=== PATIENT | female | born 1960 | race Caucasian/White ===

== ENCOUNTER 2020-05-31 17:50 | Emergency (ER) | payer BC, SELFPAY ==
[2020-05-31 17:55] VITALS: BP 189/109; PULSE 82; RESP 18; TEMP 36.6; O2SAT 98; BMI 26.5
[2020-05-31 18:05] VITALS: BP 189/109; PULSE 82; RESP 18; TEMP 36.6; O2SAT 98; BMI 26.6
--- NOTE | 2020-05-31 18:06 | XR_ITS ---
PROCEDURE: XR WRIST RT MIN 3V CLINICAL INDICATION: fall Pain COMPARISON: No exams were available for comparison FINDINGS: There is a comminuted impacted fracture involving the distal radius. There is impaction and mild foreshortening of the fracture fragments with 5 mm anterior displacement of the anterior fracture fragment. Intra-articular extension is noted. Nondisplaced distal ulnar fracture is also present. There are severe osteoarthritic changes of the 1st metacarpal-carpal joint Other findings:None. IMPRESSION: Impacted mildly displaced comminuted distal radial fracture with associated nondisplaced ulnar fracture Dictated by: Dariusz Beckford MD 05/31/2020 22:01 Dariusz Beckford MD in [place] 05/31/2020 22:01
--- NOTE | 2020-05-31 18:43 | HMH.EDUTC ---
[facility] [place] Disposition Clinical Impression: Right wrist fracture Qualifiers: Encounter type: initial encounter Fracture type: closed Qualified Code(s): S62.101A - Fracture of unspecified carpal bone, right wrist, initial encounter for closed fracture Right radial fracture Qualifiers: Encounter type: initial encounter Radius location: distal physis (incl. Salter-Kidd) Fracture alignment: nondisplaced Qualified Code(s): S59.201A - Unspecified physeal fracture of lower end of radius, right arm, initial encounter for closed fracture Right distal ulnar fracture Qualifiers: Encounter type: initial encounter Fracture type: closed Fracture morphology: unspecified fracture morphology Qualified Code(s): S52.601A - Unspecified fracture of lower end of right ulna, initial encounter for closed fracture Disposition: Home, Self-Care Condition on Discharge: Good Instructions: Wrist Fracture, DI for Wrist Fracture, How to Take Care of Your Splint Additional Instructions: Follow up with your orthopedist. We gave you a disk with your x-ray on it. Please call his office in the morning and get in to be seen. Call here if you have any difficulty. Take ibuprofen for pain. I sent in a prescription to your pharmacy. Wear the splint and arm sling. Make sure it doesn't get too tight from the swelling. GO TO THE ER FOR ANY WORSENING SYMPTOMS OR CONCERNS Prescriptions: Ibuprofen [Ibuprofen 600mg Tablet] 600 mg PO Q6HP PRN #30 tab PRN Reason: Mild Pain Transmission Status: Received by [facility] #[id number] Referrals: Mario Evans MD [Primary Care Provider] - Forms: Work/School Release Time of Disposition: 18:52 Medical Decision Making - Medical Records Medical records reviewed: No: I reviewed the patient's medical records. - Guillermo Inquiry Pt receiving controlled substance: No Vital Signs: 05/31/20 17:55 05/31/20 18:05 05/31/20 18:57 Temperature 97.9 F 97.9 F 97.9 F Temperature Source Oral Oral Oral Pulse Rate 82 Pulse Rate [Right Radial] 82 82 Respiratory Rate 18 18 18 Blood Pressure 180/98 H Blood Pressure [Right Arm] 189/109 H 189/109 H Blood Pressure Mean [Right Arm] 135 135 Blood Pressure Source Automatic Cuff Blood Pressure Source [Right Arm] Automatic Cuff Automatic Cuff Blood Pressure Position Sitting Blood Pressure Position [Right Arm] Sitting Sitting 02 Sat by Pulse Oximetry 98 98 Oxygen Delivery Method Room Air Room Air Room Air - Radiology Data #1 Image(s): Wrist Image Reviewed: Yes I reviewed the patient's radiology image, Yes I have reviewed radiologist's interpretation Preliminary Findings: Abnormal PROCEDURE: XR WRIST RT MIN 3V CLINICAL INDICATION: fall Pain COMPARISON: No exams were available for comparison FINDINGS: There is a comminuted impacted fracture involving the distal radius. There is impaction and mild foreshortening of the fracture fragments with 5 mm anterior displacement of the anterior fracture fragment. Intra-articular extension is noted. Nondisplaced distal ulnar fracture is also present. There are severe osteoarthritic changes of the 1st metacarpal-carpal joint Other findings:None. IMPRESSION: Impacted mildly displaced comminuted distal radial fracture with associated nondisplaced ulnar fracture Dictated by: Dariusz Beckford MD 05/31/2020 22:01 Dariusz Beckford MD in [place] 05/31/2020 22:01 Medical Decision Narrative: She was adamant that she works at [facility] [employer] [place] so she wants to be seen by the orthopedist there. A disk containing the x-ray image was given to her. A sugar tong splint was applied. She was instucted to call her ortho first thing in the morning and to take the disk to her ortho's office so he can view the x-ray and treat her from there. If she has any trouble getting in there she is to call me and I will get her in with our ortho tanner. [facility] [place] HPI - General Stated complaint: AO 05/31/20 Fell, injured
[2020-05-31 18:57] VITALS: BP 180/98; PULSE 82; RESP 18; TEMP 36.6; O2SAT 98
== END 2020-05-31 18:59 | disposition home or self-care (01) ==
PROVIDERS: Emergency Provider Nurse Practitioner Family; PCP Family Medicine
DX: S52.501A Unspecified fracture of the lower end of right radius, initial encounter for closed fracture (principal); S52.601A Unspecified fracture of lower end of right ulna, initial encounter for closed fracture; W01.0XXA Fall on same level from slipping, tripping and stumbling without subsequent striking against object, initial encounter; Y92.015 Private garage of single-family (private) house as the place of occurrence of the external cause
CPT/HCPCS: 29125; 73110; 99203

== ENCOUNTER 2024-10-16 08:51 | Outpatient (CLI) | payer BC, SELFPAY ==
[2024-10-16 09:24] LABS: Basophils # 0.1 K/mm3 (0-0.2); Basophils % 0.9 % (0.1-2.0); Eosinophils # 0.7 K/mm3 (0.0-0.4); Eosinophils % 9.3 % (0.1-12.0); Hematocrit 41.6 % (37.0-47.0); Hemoglobin 14.3 g/dL (12.2-16.2); Lymphocytes # 1.8 K/mm3 (0.7-4.5); Lymphocytes % 23.7 % (10-50); Mean Corpuscular HGB Conc 34.4 g/dL (31.8-35.4); Mean Corpuscular Hemoglobin 33.7 pg (27.0-31.2); Mean Corpuscular Volume 98.1 fl (81-99); Mean Platelet Volume 10.7 fl (7.4-10.4); Monocytes # 0.8 K/mm3 (0.1-1.0); Monocytes % 10.3 % (1.7-9.3); Neutrophils # 4.3 K/mm3 (1.8-7.8); Neutrophils % 55.7 % (37.0-80.0); Platelet Count 254 K/mm3 (142-424); Red Blood Count 4.24 M/mm3 (4.20-5.40); Red Cell Distribution Width 13.2 % (11.5-17.5); White Blood Count 7.7 K/mm3 (4.8-10.8)
[2024-10-16 10:23] LABS: Albumin Level 4.7 g/dl (3.5-5.0); Chloride 109 mmol/L (98-107)
[2024-10-16 10:24] LABS: Potassium 4.5 mmoL/L (3.5-5.1); Sodium 141 mmol/L (136-145)
[2024-10-16 10:26] LABS: Alanine Aminotransferase 23 U/L (12-78); Albumin/Globulin Ratio 2.4 (1.1-1.8); Alkaline Phosphatase 129 U/L (38-126); Anion Gap 11.5 mEq/L (5-15); Aspartate Amino Transferase 31 U/L (14-36); Bilirubin,Total 0.8 mg/dl (0.2-1.3); Blood Urea Nitrogen 15 mg/dl (7-17); Carbon Dioxide 25 mmol/L (22.0-30.0); Estimated Glomerular Filt Rate 85 ml/min (>60); GFR (African American) 102 ML/MIN (>60); Total Protein,Serum 6.7 g/dl (6.3-8.2)
[2024-10-16 10:27] LABS: Chol/HDL Ratio 2.9 (1-3.5); Cholesterol 204 mg/dl (140-200); Glucose 112 mg/dl (74-100); HDL Cholesterol 70 mg/dl (40-60); Triglycerides 98 mg/dl (30-150); VLDL Cholesterol 20 mg/dL (0-40)
[2024-10-16 10:39] LABS: Direct LDL Cholesterol 114.55 mg/dL (100-129)
[2024-10-16 11:01] LABS: Thyroid Stimulating Hormone 1.27 uIU/mL (0.465-4.68)
== END 2024-10-16 23:59 | disposition home or self-care (01) ==
LOC: LAB 08:52
PROVIDERS: PCP Physician Assistant; Visit Provider Physician Assistant
DX: E78.2 Mixed hyperlipidemia (principal); I10 Essential (primary) hypertension
CPT/HCPCS: 36415; 80053; 80061; 84443; 85025

== ENCOUNTER 2025-07-02 09:38 | Outpatient (CLI) | payer BC, SELFPAY ==
--- OUTSIDE RECORDS SUMMARY | 2024-02-18 07:15 | XMS_ITS ---
Author Organization C[facility] Address [facility] [facility] [address] [place] [phone] Care Team Providers Care Experience Design Director Name Role Phone Trena Evans Primary Care Provider [phone] Vee Gillespie Unavailable [phone] Allergies No Known Allergies Results Component Value Reference Range Notes Glycohemoglobin A1c (in hous e) Reviewed date:02/25/2024 09:04:05 AM Interpretation:5.0% Performing Lab: Notes/Report: 5.0% glycohemoglobin 5.0% 5 - 6.5 % REASON FOR VISIT 1 week Medications Medication SIG (Take, Route, Frequency, Duration) Notes Start Date End Date Status Lisinopril 40 MG 1 tablet Orally Once a day; Duration: 30 day(s) 02/18/2024 Active Lipitor 40 MG 1 tablet Orally Once a day; Duration: 90 days 02/18/2024 Active Lisinopril 20 MG 1 tablet Orally Once a day 02/11/2024 Active Venlafaxine HCl ER 37.5 MG 1 tablet with food Orally Once a day; Duration: 30 day(s) 02/11/2024 Active Social History Tobacco Use: Social History Observation Description Date Smoking Status WARNING: Information temporarily unavailable CURRENT TOBACCO USE: Question Answer Notes Are you a: 1/2 pack per day Vital Signs Blood pressure systolic 160 mm Hg 02/18/20 24 Blood pressure diastolic 100 mm Hg 024 Heart Rate 94 /min 02/18/2024 Height 58 in 02/18/2024 Weight 154.4 lbs 02/18/2024 BMI 32.27 kg/m2 02/18/2024 Encounters Encounter Location Date Provider Diagnosis [facility] [address] [place] [phone] 02/18/2024 Vee Jose Miguel Essential hypertensi on I10 ; Mixed hyperlipidemia E78.2 and Impaired fasting glucose R73.01 Assessments Encounter Date Diagnosis (ICD Code) Assessment Notes Treatment Notes Treatment Clinical Notes Section Notes 02/18/2024 Essential hypertension (ICD-10 - I10) Will increase lisinopril and continue to monitor BP. Will f/u in 1 month. 02/18/2024 Mixed hyperlipidemia (ICD-10 - E78.2) Lipids were elevated. Will start back on lipitor and recheck in 3 months. 02/18/2024 Impaired fasting glucose (ICD-10 - R73.01) Plan Of Treatment Medication Medication Name Sig Start Date Stop Date Notes Lisinopril 40 MG 1 tablet Orally Once a day; Duration: 30 day(s) 02/18/2024 Lipitor 40 MG 1 tablet Orally Once a day; Duration: 90 days 02/18/2024 Treatment Notes Assessment Notes Essential hypertension Will increase lis inopril and continue to monitor BP. Will f/u in 1 month. Mixed hyperlipidemia Lipids were elevate d. Will start back on lipitor and recheck in 3 months. Next Appt Details Follow Up: 1 month, Reason: Progress Notes * REE EUSEBIODOB: 2 (64 yo F)Acc No.[id number]:02/18/2024 Progress Notes Patient: EUSEBIO PATTERSON Provider: DANNY Weller :1960 A ge:63 Y S ex:Female Date:02/18/2024 Address:[address] [place] [address] [place], [id number] Pcp:Trena Evans Subjective: * Chief Complaints: * 1 . 1 week. * HPI: C ardiology: The patient is here for a 1 week follow up on Hypertension. Pt states she has been checking her BP and has a log but forgot to bring it in today. Pt states her BP has been up and down. Mostly up. Pt states refills are not needed. Denies : Chest Pain. D enies : Short of Breath. D enies : Dizziness. D enies : Palpitations. D enies : Headaches. * ROS: D ERMATOLOGY: no R kathleen. n o H constance. G ASTROENTEROLOGY: no N ausea. n o V omiting. n o D iarrhea.? U ROLOGY: no D ifficulty urinating. n o B lood in urine. * Medical History: H ypertension, Hyperlipidemia. * Surgical History: t onsillectomy 1968, 1991, 1994. * Family History: F ather: , alzheimer. M other: alive. 3 brother(s) , 1 sister(s) - healthy. 2 son(s) . . one Son had a stroke at age 28. * Social History: C URRENT TOBACCO USE: Yes A re you a: 1/2 pack per day. C affeine: yes, frequency:2-3 sodas a day. Exercise: no. Home smoke detector use: yes. Marital Status: . Alcohol: yes, occasional wine. 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 Past smoking status: yes, PPD: , years: ,determination:, 1 ppd, 40 + years;. Recreational drug use: no. Alcohol: Yes, Type: , Frequency: ,Years: , Determination:beer or wine, 2-3 times a week. Sexually active: yes. Travel ouside [place]: no. * Medications: T aking Lisinopril 20 MG Tablet 1 tablet Orally Once a day , Taking Venlafaxine HCl ER 37.5 MG Tablet Extended Release 24 Hour 1 tablet with food Orally Once a day , Medication List reviewed and reconciled with the patient * Allergies: N .K.D.A. Objective: * Vitals: W t:154.4, Temp:98.1, BP:160/100, HR:94, Nurse:ELISA, Ht: 58, Repeat BP:138/98, BMI:32.27. * Examination: G eneral Examination: General Appearance: N AD. C hest: n ormal shape and expansion. H eart: R SR. L ungs: c lear to auscultation. E xtremities: trace leg edema. Assessment: * Assessment: 1. E ssential hypertension - I10 (Primary) 2 . M ixed hyperlipidemia - E78.2 3 . I mpaired fasting glucose - R73.01 Plan: * Treatment: 2. M ixed hyperlipidemia Start Lipitor Tablet, 40 MG, 1 tablet, Orally, Once a day, 90 days, 90 Tablet, Refills 0. ? Notes: Lipids were elevated. Will start back on lipitor and recheck in 3 months. 3. I mpaired fasting glucose L AB: Glycohemoglobin A1c (in house) (Collection Date & Time - 02/18/2024) 5 .0% Value Reference Range g lycohemoglobin 5.0% 5 - 6.5 % * Sobeida Sena 02/18/2024 12:0 1:25 PM > results reviewed w/ pt in Vee Soto 02/25/2024 8:44:43 AM > Please let patient know this was normalGobleSobeida 02/25/2024 8:58:06 AM > left message for return callGobleSobeida 02/25/2024 9:02:58 AM > pt informed again * Procedure Codes: 3 6416 CAPILLARY BLOOD DRAW, 02368 GLYCATED HEMOGLOBIN TEST, Modifiers: QW * Follow Up: 1 month * Images: Billing Information: * Visit Code: 16203 Office Visit, Est Pt., Level 3. * Procedure Codes: 39829 CAPILLARY BLOOD DRAW. 47186 GLYCATED HEMOGLOBIN TEST. Modifiers: QW * Electronic signature of DANNY Tafoya on 07/02/2025 at 09:41 AM EDT Sign off status: Pending * Provider: DANNY Weller Date: 0 02/18/2024 Generated for Fede ng/Fagabrielag/eTransmitting on: 1 09/01/2024 09:41 AM EDT History and Physical Notes * HPI (History of Present Illness) Category Sub-Category Detail Notes Category Not es Cardiology Short of Breath Chest Pain Palpitations Dizziness Headaches Examination Category Sub-Category Detail Notes Category Not es General Examination Heart: RSR Lungs: clear to auscultatio n Extremities: trace leg edema General Appearance: NAD Chest: normal shape and exp ansion
--- OUTSIDE RECORDS SUMMARY | 2024-03-19 11:30 | XMS_ITS ---
Author Organization [facility] Address [address] [facility] [address] [place] [phone] Care Team Providers Care Luggage Repairer Name Role Phone Trena Evans Primary Care Provider [phone] Vee Gillespie Unavailable [phone] Allergies No Known Allergies REASON FOR VISIT 1 month f/u Medications Medication SIG (Take, Route, Frequency, Duration) Notes Start Date End Date Status Isosorbide Mononitrate ER 60 MG 1 tablet in the morning Orally Once a day; Duration: 30 day(s) Active Metoprolol Tartrate 25 MG 1 tablet with food Orally Twice a day; Duration: 30 day(s) Active Lisinopril 40 MG 1 tablet Orally Once a day; Duration: 30 day(s) 02/18/2024 Active Lipitor 40 MG 1 tablet Orally Once a day; Duration: 90 days 02/18/2024 Active Venlafaxine HCl ER 37.5 MG 1 tablet with food Orally Once a day; Duration: 30 day(s) 02/11/2024 Active Social History Tobacco Use: Social History Observation Description Date Smoking Status WARNING: Information temporarily unavailable CURRENT TOBACCO USE: Question Answer Notes Are you a: 1/2 pack per day Vital Signs Blood pressure systolic 148 mm Hg 03/19/20 24 Blood pressure diastolic 84 mm Hg 024 Heart Rate 75 /min 03/19/2024 Height 58 in 03/19/2024 Weight 156.6 lbs 03/19/2024 BMI 32.73 kg/m2 03/19/2024 Encounters Encounter Location Date Provider Diagnosis [facility] [address] [facility] [address] [place] [phone] 03/19/2024 Vee Gillespie Mixed hyperlipidemia E78.2 and Essential hypertension I10 Assessments Encounter Date Diagnosis (ICD Code) Assessment Notes Treatment Notes Treatment Clinical Notes Section Notes 03/19/2024 Mixed hyperlipidemia (ICD-10 - E78.2) Will need to recheck lipids in 1 month fasting. 03/19/2024 Essential hypertension (ICD-10 - I10) Cardiology is now adjusting medication. Awaiting stress test and echo. Plan Of Treatment Treatment Notes Assessment Notes Mixed hyperlipidemia Will need to rechec k lipids in 1 month fasting. Essential hypertension Cardiology is now adjusting medication. Awaiting stress test and echo. Next Appt Details Follow Up: 1 month fasting, Reason: Progress Notes * CARMEN KEENANCHRISDOB: 2 (64 yo F)Acc No.[id number]:03/19/2024 Patient: EUSEBIO PATTERSON Provider: DANNY Weller :1960 A ge:63 Y S ex:Female Date:03/19/2024 Address:[address] [place] [id number] Pcp:Trena Evans Subjective: * Chief Complaints: * 1 . 1 month f/u. * HPI: C ardiology: Blood Pressure Elevated P t presents today for a 1 month follow up on hypertension. Pt sts that she had to go to the ER due to her BP being elevated and then saw cardiology. She was g ivgladys labetolol in the ER and was sent with rx of metoprolol 25mg bid.? Her BP was s till not going down so 3 days later they gave her isosorbide 60 once a day. She had a stress test and has a f/u with an echo this coming Friday. . * ROS: D ERMATOLOGY: no R kathleen. [...] Status: . Alcohol: yes, occasional wine. 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 Past smoking status: yes, PPD: , years: ,determination:, 1 ppd, 40 + years;. Recreational drug use: no. Alcohol: Yes, Type: , Frequency: ,Years: , Determination:beer or wine, 2-3 times a week. Sexually active: yes. Travel ouside [place]: no. * Medications: T aking Isosorbide Mononitrate ER 60 MG Tablet Extended Release 24 Hour 1 tablet in the morning Orally Once a day , Taking Metoprolol Tartrate 25 MG Tablet 1 tablet with food Orally Twice a day , Taking Lisinopril 40 MG Tablet 1 tablet Orally Once a day , Taking Lipitor 40 MG Tablet 1 tablet Orally Once a day , Taking Venlafaxine HCl ER 37.5 MG Tablet Extended Release 24 Hour 1 tablet with food Orally Once a day , Medication List reviewed and reconciled with the patient * Allergies: N .K.D.A. Objective: * Vitals: W t:156.6, Temp:98.2, BP:148/84, HR:75, O2 Sat:98% on RA, Nurse:SIDNEY, Ht: 58, Repeat BP:150/80, BMI:32.73. * Examination: G eneral Examination: General Appearance: N AD. C hest: n ormal shape and expansion. H eart: R SR. L ungs: c lear to auscultation. E xtremities: no leg edema. Assessment: * Assessment: 1. M ixed hyperlipidemia - E78.2 (Primary) 2 . E ssential hypertension - I10 Plan: * Treatment: 2. E ssential hypertension Notes: Cardiology is now adjusting medication. Awaiting stress test and echo. * Procedure Codes: 9 4760 PULSE OX * Follow Up: 1 month fasting * Images: Billing Information: * Visit Code: 54382 Office Visit, Est Pt., Level 3. * Procedure Codes: 89301 PULSE OX. * Electronic signature of DANNY Tafoya on 07/02/2025 at 09:42 AM EDT Sign off status: Pending * Provider: DANNY Weller Date: 0 03/19/2024 Generated for Fede prakash/Paige/Candy on: 09/01/2024 09:42 AM EDT History and Physical Notes * HPI (History of Present Illness) Category Sub-Category Detail Notes Category Not es Cardiology Blood Pressure Elevated Pt prese nts today for a 1 month follow up on hypertension. Pt sts that she had to go to the ER due to her BP being elevated and then saw cardiology. She was given labetolol in the ER and was sent with rx of metoprolol 25mg bid. Her BP was still not going down so 3 days later they gave her isosorbide 60 once a day. She had a stress test and has a f/u with an echo this coming Friday. Examination Category Sub-Category Detail Notes Category Not es General Examination Heart: RSR Lungs: clear to auscultatio n Extremities: no leg edema General Appearance: NAD Chest: normal shape and exp ansion
--- OUTSIDE RECORDS SUMMARY | 2024-04-16 12:00 | XMS_ITS ---
Author Organization [facility] Address [facility] [facility] [address] [place] [phone] Care Team Providers Care Paperboard Boxes Estimator Name Role Phone Trena Evans Primary Care Provider [phone] Vee Gillespie Unavailable [phone] Allergies No Known Allergies REASON FOR VISIT 1 month f/u Medications Medication SIG (Take, Route, Frequency, Duration) Notes Start Date End Date Status Venlafaxine HCl ER 75 MG 1 capsule with food Orally Once a day; Duration: 90 days 04/16/2024 Active Metoprolol Tartrate 25 MG 2 tab in the a m and 1 in the pm Orally Twice a day Active Lisinopril 40 MG 1 tablet Orally Once a day; Duration: 90 days Active Lipitor 40 MG 1 tablet Orally Once a day; Duration: 90 days 02/18/2024 Active Isosorbide Mononitrate ER 60 MG 1 tablet in the morning Orally Once a day; Duration: 30 day(s) Active Social History Tobacco Use: Social History Observation Description Date Smoking Status WARNING: Information temporarily unavailable CURRENT TOBACCO USE: Question Answer Notes Are you a: 1/2 pack per day Problems Problem Type SNOMED Code ICD Code Onset Dates Problem Status W/U Status Risk Notes Problem Hypertrophic obstructive cardiomyopathy (13065585) Hypertrophic obstructive cardiomyopathy (I42.1) Active confirmed Vital Signs Blood pressure systolic 160 mm Hg 04/16/20 24 Blood pressure diastolic 108 mm Hg 024 Heart Rate 80 /min 04/16/2024 Height 58 in 04/16/2024 Weight 156.2 lbs 04/16/2024 BMI 32.64 kg/m2 04/16/2024 Encounters Encounter Location Date Provider Diagnosis [facility] [address] [place] [phone] 04/16/2024 Vee Gillespie Hypertrophic obstruc tive cardiomyopathy I42.1 ; Mixed hyperlipidemia E78.2 ; Essential hypertension I10 and Depression with anxiety F41.8 Assessments Encounter Date Diagnosis (ICD Code) Assessment Notes Treatment Notes Treatment Clinical Notes Section Notes 04/16/2024 Hypertrophic obstructive cardiomyopathy (ICD-10 - I42.1) Echo revealed hypertrophic obstructive cardiomyopathy. She is being followed by cardiology. 04/16/2024 Mixed hyperlipidemia (ICD-10 - E78.2) She is not fasting today. Will stop in tomorrow for a CMP and lipid. 04/16/2024 Essential hypertension (ICD-10 - I10) She just got her bottle of metoprolol refilled. Will increase to 2 tab in the am and 1 in the pm and call cardiology next week. 04/16/2024 Depression with anxiety (ICD-10 - F41.8) Plan Of Treatment Medication Medication Name Sig Start Date Stop Date Notes Venlafaxine HCl ER 75 MG 1 capsule with food Orally Once a day; Duration: 90 days 04/16/2024 Venlafaxine HCl ER 37.5 MG 1 tablet with food Orally Once a day 02/11/2024 Metoprolol Tartrate 25 MG 2 tab in the a m and 1 in the pm Orally Twice a day Lisinopril 40 MG 1 tablet Orally Once a day; Duration: 90 days Treatment Notes Assessment Notes Hypertrophic obstructive cardiomyopathy Echo revealed hypertrophic obstructive cardiomyopathy. She is being followed by cardiology. Mixed hyperlipidemia She is not fasting today. Will stop in tomorrow for a CMP and lipid. Essential hypertension She just got her bottle of metoprolol refilled. Will increase to 2 tab in the am and 1 in the pm and call cardiology next week. Next Appt Details Follow Up: via phone to repo rt test results, Reason: Progress Notes * EUSEBIO KEENANDOB: 2 (64 yo F)Acc No.[id number]:04/16/2024 Progress Notes Patient: CARMEN PATTERSONECCA Provider: DANNY Weller :1960 A ge:63 Y S ex:Female Date:04/16/2024 Address:[address] [place] [id number] Pcp:Trena Evans Subjective: * Chief Complaints: * 1 . 1 month f/u. * HPI: C ardiology: Blood Pressure Elevated P t presents today for a 1 month follow up on hypertension. Pt sts that she is not fasting today. Pt has no new concerns or complaints at this time. * ROS: D ERMATOLOGY: no R kathleen. [...] Alcohol: yes, occasional wine. 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 Past smoking status: yes, PPD: , years: ,determination:, 1 ppd, 40 + years;. Recreational drug use: no. Alcohol: Yes, Type: , Frequency: ,Years: , Determination:beer or wine, 2-3 times a week. Sexually active: yes. Travel [place]uside [place]: no. * Medications: T aking Isosorbide Mononitrate ER 60 MG Tablet Extended Release 24 Hour 1 tablet in the morning Orally Once a day , Taking Lipitor 40 MG Tablet 1 tablet Orally Once a day , Taking Venlafaxine HCl ER 37.5 MG Tablet Extended Release 24 Hour 1 tablet with food Orally Once a day , Taking Metoprolol Tartrate 25 MG Tablet 1 tablet with food Orally Twice a day , Taking Lisinopril 40 MG Tablet 1 tablet Orally Once a day , Medication List reviewed and reconciled with the patient * Allergies: N .K.D.A. Objective: * Vitals: W t:156.2, Temp:98.3, BP:160/108, HR:80, O2 Sat:98% on RA, Nurse:SIDNEY, Ht: 58, Repeat BP:140/90, BMI:32.64. * Examination: G eneral Examination: General Appearance: N AD. H EENT: u nremarkable.?Oral cavity: n o lesions, mucosa moist and WNL, no erythema. N sabrina: s upple, no lymphadenopathy. C hest: n ormal shape and expansion. H eart: R SR. L ungs: c lear to auscultation. A bdomen: bowel sounds present, soft and nontender. N eurologic Exam: I ntact, gait normal. S kin: n ormal, no rash. P eripheral pulses: n ormal (2+) bilaterally. E xtremities: n o leg edema. Assessment: * Assessment: 1. H ypertrophic obstructive cardiomyopathy - I42.1 (Primary) 2 . M ixed hyperlipidemia - E78.2 3 . E ssential hypertension - I10 4 . D epression with anxiety - F41.8 Plan: * Treatment: 2. M ixed hyperlipidemia Notes: She is not fasting today. Will stop in tomorrow for a CMP and lipid. 3. E ssential hypertension Refill Lisinopril Tablet, 40 MG, 1 tablet, Orally, Once a day, 90 days, 90 Tablet, Refills 3; I ncrease Metoprolol Tartrate Tablet, 25 MG, 2 tab in the am and 1 in the pm, Orally, Twice a day.? Notes: She just got her bottle of metoprolol refilled. Will increase to 2 tab in the am and 1 in the pm and call cardiology next week. 4. D epression with anxiety Stop Venlafaxine HCl ER Tablet Extended Release 24 Hour, 37.5 MG, 1 tablet with food, Orally, Once a day; S tart Venlafaxine HCl ER Capsule Extended Release 24 Hour, 75 MG, 1 capsule with food, Orally, Once a day, 90 days, 90 Capsule, Refills 3. * Procedure Codes: 9 4760 PULSE OX * Follow Up: v ia phone to report test results * Images: Billing Information: * Visit Code: 23108 Office Visit, Est Pt., Level 4. * Procedure Codes: 43001 PULSE OX. * Electronic signature of DANNY Tafoya on 07/02/2025 at 09:42 AM EDT Sign off status: Pending * Provider: DANNY Weller Date: 0 04/16/2024 Generated for Fede prakash/Paige/Candy on: 1 09/01/2024 09:42 AM EDT History and Physical Notes * HPI (History of Present Illness) Category Sub-Category Detail Notes Category Not es Cardiology Blood Pressure Elevated Pt prese nts today for a 1 month follow up on hypertension. Pt sts that she is not fasting today. Pt has no new concerns or complaints at this time Examination Category Sub-Category Detail Notes Category Not es General Examination HEENT: unremarkable Heart: RSR Lungs: clear to auscultatio n Abdomen: bowel sounds present , soft and nontender Extremities: no leg edema General Appearance: NAD Skin: normal, no rash Neurologic Exam: Intact, gait normal Neck: supple, no lymphaden opathy Oral cavity: no lesions, mucosa m oist and WNL, no erythema Peripheral pulses: normal (2+) bilatera lly Chest: normal shape and exp ansion
--- OUTSIDE RECORDS SUMMARY | 2024-04-17 05:30 | XMS_ITS ---
Author Organization [facility] Address [address] [facility] [address] [place] [id number] Care Team Providers Care Advertising Copywriter Name Role Phone Trena Evans Primary Care Provider [phone] BernardoVee nguyễn Unavailable [phone] Results Component Value Reference Range Notes P-Comprehensive Metabolic Pa gustavo (CMP) Reviewed date:04/21/2024 01:06:10 PM Interpretation:co2- 21, alk phos 139 Performing Lab: Notes/Report: Test performed by [facility] [address] [place], [place] [address] , [address], [place] [address] Tc Lezama MD, Street Cleaning Equipment Operator CLIA: [id number] Sodium 142 135-145 mmol/L Potassium 4.0 3.5-5.3 mmol/L Chloride 108 97-108 mmol/L CO2 21 22-32 mmol/L Glucose 87 65-99 mg/dL BUN 14 8-23 mg/dL Creatinine 0.68 0.50-1.00 mg/dL Calcium 8.7 8.6-10.4 mg/dL eGFR by Creatinine 98 >59 mL/min/1.73m2 Protein 6.6 6.0-8.3 g/dL Albumin 4.4 3.5-5.3 g/dL Alkaline Phosphatase 139 35-121 IU/L ALT (SGPT) 19 <5-47 IU/L AST (SGOT) 26 <5-40 IU/L Bilirubin, Total 0.3 <0.2-1.2 mg/dL A/G Ratio 2.0 1.1-2.5 P-Lipid Panel Reviewed date:04/21/2024 01:05:58 PM Interpretation:Normal Performing Lab: Notes/Report: Test performed by [facility] [address] , [address], [place] [address] Tc Lezama MD, Street Cleaning Equipment Operator CLIA: [id number] Cholesterol 176 <200 mg/dL Triglycerides 108 <150 mg/dL HDL Cholesterol 58 >39 mg/dL Cholesterol / HDL Ratio 3.03 0.00-4.44 Ratio Non-HDL Cholesterol 118 <130 mg/dL LDL Cholesterol (Calculation) 96 <130 mg/dL LDL Cholesterol Levels* Less than 100 mg/dL Optimal 100 to 129 mg/dL Near Optimal/ Above Optimal 130 to 159 mg/dL Borderline High 160 to 189 mg/dL High 190 mg/dL and above Very High * Categories as recommended by the 2004 ATPIII guidelines LDL/HDL Ratio 1.7 <3.3 Ratio LDL Cholesterol Patient History Test Date: 02/12/2024 LDL Results: 205 Units: mg/dL % Change: - Test Date: 04/17/2024 LDL Results: 96 Units: mg/dL % Change: -53% REASON FOR VISIT labs Medications Medication SIG (Take, Route, Frequency, Duration) Notes Start Date End Date Status Lisinopril 40 MG 1 tablet Orally Once a day; Duration: 90 days Active Venlafaxine HCl ER 75 MG 1 capsule with food Orally Once a day; Duration: 90 days 04/16/2024 Active Lipitor 40 MG 1 tablet Orally Once a day; Duration: 90 days 02/18/2024 Active Isosorbide Mononitrate ER 60 MG 1 tablet in the morning Orally Once a day; Duration: 30 day(s) Active Metoprolol Tartrate 25 MG 2 tab in the a m and 1 in the pm Orally Twice a day Active Encounters Encounter Location Date Provider Diagnosis [facility] [address] [place] [phone] 04/17/2024 Vee Gillespie Essential hypertensi on I10 and Mixed hyperlipidemia E78.2 Assessments Encounter Date Diagnosis (ICD Code) Assessment Notes Treatment Notes Treatment Clinical Notes Section Notes 04/17/2024 Essential hypertension (ICD-10 - I10) 04/17/2024 Mixed hyperlipidemia (ICD-10 - E78.2) Plan Of Treatment No Information Progress Notes * EUSEBIO KEENANDOB: 2 (64 yo F)Acc No.[id number]:04/17/2024 Patient: CARMEN PATTERSONECCA Provider: DANNY Weller :1960 A ge:63 Y S ex:Female Date:04/17/2024 Address:[address] [place] [id number] Pcp:Trena Evans Subjective: * Chief Complaints: * 1 . Labs. * Medical History: * Medications: T aking Isosorbide Mononitrate ER 60 MG Tablet Extended Release 24 Hour 1 tablet in the morning Orally Once a day , Taking Lipitor 40 MG Tablet 1 tablet Orally Once a day , Taking Venlafaxine HCl ER 75 MG Capsule Extended Release 24 Hour 1 capsule with food Orally Once a day , Taking Lisinopril 40 MG Tablet 1 tablet Orally Once a day , Taking Metoprolol Tartrate 25 MG Tablet 2 tab in the am and 1 in the pm Orally Twice a day , Medication List reviewed and reconciled with the patient Objective: * Vitals: Assessment: * Assessment: 1. E ssential hypertension - I10 2 . M ixed hyperlipidemia - E78.2 ? Plan: * Treatment: Value Reference Range A /G Ratio 2.0 1.1-2.5 - * A lbumin 4.4 3.5-5.3 - g/dL * A lkaline Phosphatase 139 H 35-121 - IU/L * A LT (SGPT) 19 <5-47 - IU/L * A ST (SGOT) 26 <5-40 - IU/L * B ilirubin, Total 0.3 <0.2-1.2 - mg/dL * B UN 14 8-23 - mg/dL * C alcium 8.7 8.6-10.4 - mg/dL * C hloride 108 97-108 - mmol/L * C O2 21 L 22-32 - mmol/L * C reatinine 0.68 0.50-1.00 - mg/dL * G lucose 87 65-99 - mg/dL * P otassium 4.0 3.5-5.3 - mmol/L * S odium 142 135-145 - mmol/L * P rotein 6.6 6.0-8.3 - g/dL * e GFR by Creatinine 98 >59 - mL/min/1.73m2 * Vee Gillespie 04/21/2024 1: 06:06 PM > see TE 2.?Mixed hyperlipidemia?LAB: P-Comprehensive Metabolic Panel (CMP) (Collection Date & Time - 04/17/2024 10:02 AM)?co2- 21, alk phos 139* Value Reference Range A /G Ratio 2.0 1.1-2.5 - * A lbumin 4.4 3.5-5.3 - g/dL * A lkaline Phosphatase 139 H 35-121 - IU/L * A LT (SGPT) 19 <5-47 - IU/L * A ST (SGOT) 26 <5-40 - IU/L * B ilirubin, Total 0.3 <0.2-1.2 - mg/dL * B UN 14 8-23 - mg/dL * C alcium 8.7 8.6-10.4 - mg/dL * C hloride 108 97-108 - mmol/L * C O2 21 L 22-32 - mmol/L * C reatinine 0.68 0.50-1.00 - mg/dL * G lucose 87 65-99 - mg/dL * P otassium 4.0 3.5-5.3 - mmol/L * S odium 142 135-145 - mmol/L * P rotein 6.6 6.0-8.3 - g/dL * e GFR by Creatinine 98 >59 - mL/min/1.73m2 * Vee Gillespie 04/21/2024 1: 06:06 PM > see TE ?LAB: P-Lipid Panel (Collection Date & Time - 04/17/2024 10:02 AM)?Normal* Value Reference Range C holesterol / HDL Ratio 3.03 0.00-4.44 - Ratio * C holesterol 176 <200 - mg/dL * H DL Cholesterol 58 >39 - mg/dL * L DL Cholesterol (Calculation) 96 <130 - mg/d L * L DL/HDL Ratio 1.7 <3.3 - Ratio * N on-HDL Cholesterol 118 <130 - mg/dL * T riglycerides 108 <150 - mg/dL * Vee Gillespie 04/21/2024 1: 05:54 PM > see TE * Images: Billing Information: * Visit Code: * Procedure Codes: * Electronic signature of DANNY Tafoya on 07/02/2025 at 09:43 AM EDT Sign off status: Pending * Provider: DANNY Weller Date: 0 04/17/2024 Generated for Fede prakash/Paige/eTransmitting on: 1 09/01/2024 09:43 AM EDT
--- OUTSIDE RECORDS SUMMARY | 2024-10-15 09:15 | XMS_ITS ---
Author Organization [facility] Address [address] [place] [phone] Care Team Providers Care Stump Shooter Name Role Phone Trena Evans Primary Care Provider Vee Gillespie Unavailable [phone] Allergies No Known Allergies Results Component Value Reference Range Notes H-TSH Reviewed date:10/20/2024 12:42:01 PM Interpretation: Performing Lab: Notes/Report: TSH 1.27 0.465-4.68 uIU/mL H-CBC Reviewed date:10/20/2024 12:42:01 PM Interpretation: Performing Lab: Notes/Report: WBC 7.7 4.8-10.8 K/mm3 RBC 4.24 4.20-5.40 M/mm3 HGB 14.3 12.2-16.2 g/dL HCT 41.6 37.0-47.0 % MCV 98.1 81-99 fl MCH 33.7 27.0-31.2 pg MCHC 34.4 31.8-35.4 g/dL RDW 13.2 11.5-17.5 % PLT 254 142-424 K/mm3 MPV 10.7 7.4-10.4 fl NE% 55.7 37.0-80.0 % LY% 23.7 10-50 % MO% 10.3 1.7-9.3 % EO% 9.3 0.1-12.0 % BA% 0.9 0.1-2.0 % NE# 4.3 1.8-7.8 K/mm3 LY# 1.8 0.7-4.5 K/mm3 MO# 0.8 0.1-1.0 K/mm3 EO# 0.7 0.0-0.4 K/mm3 BA# 0.1 0-0.2 K/mm3 H-Lipid Panel Reviewed date:10/20/2024 12:42:01 PM Interpretation: Performing Lab: Notes/Report: Patient Fasting? Y TRIG 98 30-150 mg/dl CHOL 204 140-200 mg/dl DLDL 114.55 100-129 mg/dL VLDL 20 0-40 mg/dL HDL 70 40-60 mg/dl CHLHDL 2.9 1-3.5 H-CMP Reviewed date:10/20/2024 12:42:01 PM Interpretation: Performing Lab: Notes/Report: NA 141 136-145 mmol/L K 4.5 3.5-5.1 mmoL/L CL 109 98-107 mmol/L CO2 25 22.0-30.0 mmol/L GAP 11.5 5-15 mEq/L BUN 15 7-17 mg/dl CREATT 0.70 0.52-1.04 mg/dl GFRAA 102 >60 ML/MIN EGFR 85 >60 ml/min GLU 112 74-100 mg/dl CA 9.0 8.4-10.2 mg/dl BILIT 0.8 0.2-1.3 mg/dl AST 31 14-36 U/L ALT 23 12-78 U/L TP 6.7 6.3-8.2 g/dl ALB 4.7 3.5-5.0 g/dl GLOB 2.0 1.3-3.2 g/dL AGRATIO 2.4 1.1-1.8 ALP 129 38-126 U/L REASON FOR VISIT 6 month checkup Medications Medication SIG (Take, Route, Frequency, Duration) Notes Start Date End Date Status Lisinopril 40 MG 1 tablet Orally Once a day; Duration: 90 days Active Metoprolol Tartrate 50 MG 1 tablet with food Orally Twice a day Active CPAP machine and supplies - as directed as directed Active Isosorbide Mononitrate ER 60 MG 1 tablet in the morning Orally Once a day; Duration: 30 day(s) Active Lipitor 40 MG 1 tablet Orally Once a day; Duration: 30 day(s) 02/18/2024 Active amLODIPine Besylate 2.5 MG 1 tablet Oral ly Once a day; Duration: 30 day(s) Active Venlafaxine HCl ER 75 MG 2 cap Orally Once a day 0 04/16/2024 Active Social History Tobacco Use: Social History Observation Description Date Smoking Status WARNING: Information temporarily unavailable CURRENT TOBACCO USE: Question Answer Notes Are you a: 1/2 pack per day Vital Signs Blood pressure systolic 120 mm Hg 10/15/19 25 Blood pressure diastolic 80 mm Hg 025 Heart Rate 65 /min 10/15/2024 Height 58 in 10/15/2024 Weight 164.8 lbs 10/15/2024 BMI 34.44 kg/m2 10/15/2024 Encounters Encounter Location Date Provider Diagnosis [facility] [address] [facility] [place], [place] [phone] 10/15/2024 Vee Gillespie Mixed hyperlipidemia E78.2 ; Essential hypertension I10 and Depression with anxiety F41.8 Assessments Encounter Date Diagnosis (ICD Code) Assessment Notes Treatment Notes Treatment Clinical Notes Section Notes 10/15/2024 Mixed hyperlipidemia (ICD-10 - E78.2) 10/15/2024 Essential hypertension (ICD-10 - I10) 10/15/2024 Depression with anxiety (ICD-10 - F41.8) Patient would like to increase her venlafaxine dose. Will take 2 and if this works, will send in rx for increased dose. Plan Of Treatment Medication Medication Name Sig Start Date Stop Date Notes Venlafaxine HCl ER 75 MG 2 cap Orally Once a day Treatment Notes Assessment Notes Depression with anxiety Patient would li ke to increase her venlafaxine dose. Will take 2 and if this works, will send in rx for increased dose. Next Appt Details Follow Up: via phone to repo rt test results, Reason: Progress Notes * EUSEBIO KEENANDOB: 2 (64 yo F)Acc No.[id number]:10/15/2024 Progress Notes Patient: CARMEN PATTERSONECCA Provider: DANNY Weller :1960 A ge:64 Y S ex:Female Date:10/15/2024 Address:[address] [place] [address] RAN RODRIGUEZ [phone] Pcp:Trena Evans Subjective: * Chief Complaints: * 1 . 6 month checkup. * HPI: H PI: 64 year old female presents with c/o Patient is here today for?Pt is here today for a scheduled 6 month f/u. Pt sts she is doing well and has no concerns at this time. Pt sts her bp has been better as well. Pt sts she has a f/u with her associate director of biostatistics on the . * ROS: D ERMATOLOGY: no R [...] Status: . Alcohol: yes, occasional wine. 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 Past smoking status: yes, PPD: , years: ,determination:, 1 ppd, 40 + years;. Recreational drug use: no. Alcohol: Yes, Type: , Frequency: ,Years: , Determination:beer or wine, 2-3 times a week. Sexually active: yes. Travel ouside [place]: no. * Medications: T aking amLODIPine Besylate 2.5 MG Tablet 1 tablet Orally Once a day , Taking CPAP machine and supplies - - as directed as directed , Taking Isosorbide Mononitrate ER 60 MG Tablet Extended Release 24 Hour 1 tablet in the morning Orally Once a day , Taking Lisinopril 40 MG Tablet 1 tablet Orally Once a day , Taking Metoprolol Tartrate 50 MG Tablet 1 tablet with food Orally Twice a day , Taking Venlafaxine HCl ER 75 MG Capsule Extended Release 24 Hour 1 capsule with food Orally Once a day , Taking Lipitor 40 MG Tablet 1 tablet Orally Once a day , Medication List reviewed and reconciled with the patient * Allergies: N .K.D.A. Objective: * Vitals: W t:164.8, Temp:98.4, BP:120/80, HR:65, Nurse:mm, Ht: 58, BMI:34.44. * Examination: G eneral Examination: General Appearance: N AD. H EENT: u nremarkable.?Oral cavity: n o lesions, mucosa moist and WNL, no erythema. N sabrina: s upple, no lymphadenopathy. C hest: n ormal shape and expansion. H eart: R SR. L ungs: c lear to auscultation. A bdomen: bowel sounds present, soft and nontender, no organomegaly or masses, no guarding or rigidity. N eurologic Exam: I ntact, gait normal. S kin: n ormal, no rash. P eripheral pulses: n ormal (2+) bilaterally. E xtremities: n o leg edema. Assessment: * Assessment: 1. M ixed hyperlipidemia - E78.2 (Primary) 2 . E ssential hypertension - I10 3 . D epression with anxiety - F41.8 Plan: * Treatment: Value Reference Range T RIG 98 30-150 - mg/dl * C HOL 204 H 140-200 - mg/dl * D LDL 114.55 100-129 - mg/dL * V LDL 20 0-40 - mg/dL * H DL 70 H 40-60 - mg/dl * C HLHDL 2.9 1-3.5 - * Vee Gillespie 10/20/2024 12 :41:52 PM > see TE ?LAB: H-CMP (Collection Date & Time - 10/16/2024 08:56 AM)* Value Reference Range N A 141 136-145 - mmol/L * K 4.5 3.5-5.1 - mmoL/L * C L 109 H 98-107 - mmol/L * C O2 25 22.0-30.0 - mmol/L * G AP 11.5 5-15 - mEq/L * B UN 15 7-17 - mg/dl * C REATT 0.70 0.52-1.04 - mg/dl * G FRAA 102 >60 - ML/MIN * E GFR 85 >60 - ml/min * G ALESHA 112 H 74-100 - mg/dl * C A 9.0 8.4-10.2 - mg/dl * B ILIT 0.8 0.2-1.3 - mg/dl * A ST 31 14-36 - U/L * A LT 23 12-78 - U/L * T P 6.7 6.3-8.2 - g/dl * A LB 4.7 3.5-5.0 - g/dl * G LOB 2.0 1.3-3.2 - g/dL * A GRATIO 2.4 H 1.1-1.8 - * A LP 129 H 38-126 - U/L * Vee Gillespie 10/20/2024 12 :41:52 PM > see TE 2.?Essential hypertension?LAB: H-TSH (Collection Date & Time - 10/16/2024 08:56 AM)* Value Reference Range T SH 1.27 0.465-4.68 - uIU/mL * Vee Gillespie 10/20/2024 12 :41:52 PM > see TE ?LAB: H-CBC (Collection Date & Time - 10/16/2024 08:56 AM)* Value Reference Range W BC 7.7 4.8-10.8 - K/mm3 * R BC 4.24 4.20-5.40 - M/mm3 * H GB 14.3 12.2-16.2 - g/dL * H CT 41.6 37.0-47.0 - % * M CV 98.1 81-99 - fl * M CH 33.7 H 27.0-31.2 - pg * M CHC 34.4 31.8-35.4 - g/dL * R DW 13.2 11.5-17.5 - % * P LT 254 142-424 - K/mm3 * M PV 10.7 H 7.4-10.4 - fl * N E% 55.7 37.0-80.0 - % * L Y% 23.7 10-50 - % * M O% 10.3 H 1.7-9.3 - % * E O% 9.3 0.1-12.0 - % * B A% 0.9 0.1-2.0 - % * N E# 4.3 1.8-7.8 - K/mm3 * L Y# 1.8 0.7-4.5 - K/mm3 * M O# 0.8 0.1-1.0 - K/mm3 * E O# 0.7 H 0.0-0.4 - K/mm3 * B A# 0.1 0-0.2 - K/mm3 * Jose MiguelVee Young 10/20/2024 12 :41:52 PM > see TE 3.?Depression with anxiety? Increase Venlafaxine HCl ER Capsule Extended Release 24 Hour, 75 MG, 2 cap, Orally, Once a day. ? Notes: Patient would like to increase her venlafaxine dose. Will take 2 and if this works, will send in rx for increased dose.?? * Procedure Codes: 3 074F SYST BP LT 130 MM HG, 3079F DIAST BP 80-89 MM HG * Follow Up: v ia phone to report test results * Images: Billing Information: * Visit Code: 81870 Office Visit, Est Pt., Level 4. * Procedure Codes: 3074F SYST BP LT 130 MM HG. 3079F DIAST BP 80-89 MM HG. * Electronic signature of DANNY Tafoya on 07/02/2025 at 09:42 AM EDT Sign off status: Pending * Provider: DANNY Weller Date: 0 10/15/2024 Generated for Fede prakash/Paige/eTransmitting on: 1 09/01/2024 09:42 AM EDT History and Physical Notes * HPI (History of Present Illness) Category Sub-Category Detail Notes Category Not es HPI Patient is here today for Pt is here today for a scheduled 6 month f/u. Pt sts she is doing well and has no concerns at this time. Pt sts her bp has been better as well. Pt sts she has a f/u with her associate director of biostatistics on the Examination Category Sub-Category Detail Notes Category Not es General Examination HEENT: unremarkable Heart: RSR Lungs: clear to auscultatio n Abdomen: bowel sounds present , soft and nontender, no organomegaly or masses, no guarding or rigidity Extremities: no leg edema General Appearance: NAD Skin: normal, no rash Neurologic Exam: Intact, gait normal Neck: supple, no lymphaden opathy Oral cavity: no lesions, mucosa m oist and WNL, no erythema Peripheral pulses: normal (2+) bilatera lly Chest: normal shape and exp ansion
--- OUTSIDE RECORDS SUMMARY | 2025-01-14 05:45 | XMS_ITS ---
Author Organization [facility] Address [address] [place] [id number] Care Team Providers Care Manager Winter Name Role Phone Trena Evans Primary Care Provider [phone] BernardoVee nguyễn Unavailable [phone] Allergies No Known Allergies Results Component Value Reference Range Notes CBC Venipuncture (in house) Reviewed date:01/16/2025 11:23:03 PM Interpretation: Performing Lab: Notes/Report: wbc 6.6 3.5 - 10 lymph 22.7 15 - 50 mid 5.3 2 - 15 gran 72.0 35 - 80 rbc 4.19 3.5 - 5.5 hgb 14.1 11.5 - 16.5 hct 42.3 35 - 55 mcv 100.8 75 - 100 mch 33.7 25 - 35 mchc 33.4 31 - 38 platlet 277 100 - 400 Glycohemoglobin A1c (in hous e) Reviewed date:01/26/2025 03:09:27 PM Interpretation:5.4% Performing Lab: Notes/Report: 5.4% glycohemoglobin 5.4% 5 - 6.5 % P-Comprehensive Metabolic Pa gustavo (CMP) Reviewed date:01/26/2025 03:09:27 PM Interpretation:CO2 18, alk phos 125 Performing Lab: Notes/Report: Test performed by [facility], [facility] [address] [place] [address] , [address], [place] [address] Tc Lezama MD, Piecer Up CLIA: [id number] Sodium 141 135-145 mmol/L Potassium 4.2 3.5-5.3 mmol/L Chloride 108 97-108 mmol/L CO2 18 22-32 mmol/L Glucose 89 65-99 mg/dL BUN 19 8-23 mg/dL Creatinine 0.61 0.50-1.00 mg/dL Calcium 9.0 8.6-10.4 mg/dL eGFR by Creatinine 100 >59 mL/min/1.73m2 Protein 6.7 6.0-8.3 g/dL Albumin 4.5 3.5-5.3 g/dL Alkaline Phosphatase 125 35-121 IU/L ALT (SGPT) 15 <5-47 IU/L AST (SGOT) 22 <5-40 IU/L Bilirubin, Total 0.4 <0.2-1.2 mg/dL A/G Ratio 2.0 1.1-2.5 P-Lipid Panel Reviewed date:01/26/2025 03:09:27 PM Interpretation:chol 273, trigs 163, chol/hdl 4.63, non-hdl 214, ldl 181 Performing Lab: Notes/Report: Test performed by [facility], [facility] [address] [place] [address] , [address] , [place] [address] Tc Lezama MD, Piecer Up CLIA: [id number] Cholesterol 273 <200 mg/dL Triglycerides 163 <150 mg/dL HDL Cholesterol 59 >39 mg/dL Cholesterol / HDL Ratio 4.63 0.00-4.44 Ratio Non-HDL Cholesterol 214 <130 mg/dL LDL Cholesterol (Calculation) 181 <130 mg/dL LDL Cholesterol Levels* Less than 100 mg/dL Optimal 100 to 129 mg/dL Near Optimal/ Above Optimal 130 to 159 mg/dL Borderline High 160 to 189 mg/dL High 190 mg/dL and above Very High * Categories as recommended by the 2004 ATPIII guidelines LDL/HDL Ratio 3.1 <3.3 Ratio LDL Cholesterol Patient History Test Date: 02/12/2024 LDL Results: 205 Units: mg/dL % Change: - Test Date: 04/17/2024 LDL Results: 96 Units: mg/dL % Change: -53% Test Date: 01/14/2025 LDL Results: 181 Units: mg/dL % Change: +88% P-TSH reflex to FT4 Reviewed date:01/26/2025 03:09:27 PM Interpretation: Performing Lab: Notes/Report: Test performed by [facility], [address] , [address], [place] [address] Tc Lezama MD, Piecer Up CLIA: [id number] TSH reflex to FT4 0.71 0.43-5.25 mU/L CT SCAN : CHEST, LUNG CANCER SCREENING LOW DOSE Reviewed date:02/28/2025 11:31:01 PM Interpretation: Performing Lab: Notes/Report: REASON FOR VISIT 3 month check with labs, Needs low dose chest CT & shingles vaccine Medications Medication SIG (Take, Route, Frequency, Duration) Notes Start Date End Date Status amLODIPine Besylate 2.5 MG 1 tablet Oral ly Once a day; Duration: 30 day(s) Active CPAP machine and supplies - as directed as directed Active Metoprolol Tartrate 50 MG 1 tablet with food Orally Twice a day Active Venlafaxine HCl ER 150 MG 1 capsule with food Orally Once a day; Duration: 90 days 04/16/2024 Active Atorvastatin Calcium 40 MG TAKE 1 TABLET BY MOUTH EVERY DAY FOR 30 DAYS; Duration: 90 Active Isosorbide Mononitrate ER 60 MG 1 tablet in the morning Orally Once a day; Duration: 30 day(s) Active Lisinopril 40 MG 1 tablet Orally Once a day; Duration: 90 days Active Social History Tobacco Use: Social History Observation Description Date Smoking Status WARNING: Information temporarily unavailable CURRENT TOBACCO USE: Question Answer Notes Are you a: 1/2 pack per day Problems Problem Type SNOMED Code ICD Code Onset Dates Problem Status W/U Status Risk Notes Problem Tobacco use (136293824) Tobacco use disorder (F17.200) Active confirmed Problem Obese class I (749989312045 107) BMI 33.0-33.9,adul t (Z68.33) Active confirmed Vital Signs Blood pressure systolic 130 mm Hg 01/15/20 25 Blood pressure diastolic 90 mm Hg 025 Heart Rate 97 /min 01/14/2025 Height 58 in 01/14/2025 Weight 161 lbs 01/14/2025 BMI 33.65 kg/m2 01/14/2025 Encounters Encounter Location Date [facility] [address] [phone] 01/14/2025 Vee Gillespie Mixed hyperlipidemia E78.2 ; Essential hypertension I10 ; Depression with anxiety F41.8 ; Impaired fasting glucose R73.01 ; Tobacco use disorder F17.200 and BMI 33.0-33.9,adult Z68.33 Assessments Encounter Date Diagnosis (ICD Code) Assessment Notes Treatment Notes Treatment Clinical Notes Section Notes 01/14/2025 Mixed hyperlipidemia (ICD-10 - E78.2) 01/14/2025 Essential hypertension (ICD-10 - I10) 01/14/2025 Depression with anxiety (ICD-10 - F41.8) 01/14/2025 Impaired fasting glucose (ICD-10 - R73.01) 01/14/2025 Tobacco use disorder (ICD-10 - F17.200) 01/14/2025 BMI 33.0-33.9,adult (ICD-10 - Z68.33) Plan Of Treatment Next Appt Details Follow Up: via phone to repo rt test results, Reason: Progress Notes * EUSEBIO KEENANDOB: 2 (64 yo F)Acc No.[id number]:01/14/2025 Progress Notes Patient: EUSEBIO PATTERSON Provider: DANNY Weller :1960 A ge:64 Y S ex:Female Date:01/14/2025 Address:[address] [place] [address] [facility], [id number] Pcp:Trena Evans Subjective: * Chief Complaints: * 1 . 3 month check with labs. 2. Needs low dose chest CT & shingles vaccine. * HPI: H PI: 64 year old female presents with c/o Patient is here today for?Pt is here for a 3 month check up with fasting labs. * ROS: D ERMATOLOGY: no R kathleen. [...] . Alcohol: yes, occasional wine. 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 Past smoking status: yes, PPD: , years: [...] a day , Taking Venlafaxine HCl ER 150 MG Capsule Extended Release 24 Hour 1 capsule with food Orally Once a day , Taking Atorvastatin Calcium 40 MG Tablet TAKE 1 TABLET BY MOUTH EVERY DAY FOR 30 DAYS , Medication List reviewed and reconciled with the patient * Allergies: N .K.D.A. Objective: * Vitals: W t: 161, Temp: 98.3, BP: 130/90, HR: 97, Nurse: jacque, Ht: 58, BMI:33.65. * Examination: G eneral Examination: General Appearance: [...] . D epression with anxiety - F41.8 4 . I mpaired fasting glucose - R73.01 5 . T obacco use disorder - F17.200 6 . B KS 33.0-33.9,adult - Z68.33 Plan: * Treatment: Value Reference Range A /G Ratio 2.0 1.1-2.5 - * A lbumin 4.5 3.5-5.3 - g/dL * A lkaline Phosphatase 125 H 35-121 - IU/L * A LT (SGPT) 15 <5-47 - IU/L * A ST (SGOT) 22 <5-40 - IU/L * B ilirubin, Total 0.4 <0.2-1.2 - mg/dL * B UN 19 8-23 - mg/dL * C alcium 9.0 8.6-10.4 - mg/dL * C hloride 108 97-108 - mmol/L * C O2 18 L 22-32 - mmol/L * C reatinine 0.61 0.50-1.00 - mg/dL * G lucose 89 65-99 - mg/dL * P otassium 4.2 3.5-5.3 - mmol/L * S odium 141 135-145 - mmol/L * P rotein 6.7 6.0-8.3 - g/dL * e GFR by Creatinine 100 >59 - mL/min/1.73m2 * Sobeida Sena 01/26/2025 03: 09:17 PM > See phone encounter ?LAB: P-Lipid Panel (Collection Date & Time - 01/14/2025 10:27 AM)?chol 273, trigs 163, chol/hdl 4.63, non-hdl 214, ldl 181* Value Reference Range C holesterol / HDL Ratio 4.63 H 0.00-4.44 - Ratio * C holesterol 273 H <200 - mg/dL * H DL Cholesterol 59 >39 - mg/dL * L DL Cholesterol (Calculation) 181 H <130 - mg/d L * L DL/HDL Ratio 3.1 <3.3 - Ratio * N on-HDL Cholesterol 214 H <130 - mg/dL * T riglycerides 163 H <150 - mg/dL * Sobeida Sena 01/26/2025 03: 09:17 PM > See phone encounter 2.?Essential hypertension?LAB: P-TSH reflex to FT4 (Collection Date & Time - 01/14/2025 10:27 AM)* Value Reference Range T SH reflex to FT4 0.71 0.43-5.25 - mU/L * Sobeida Sena 01/26/2025 03: 09:17 PM > See phone encounter ?LAB: CBC Venipuncture (in house) (Collection Date & Time - 01/14/2025)* Value Reference Range w bc 6.6 3.5 - 10 * l ymph 22.7 15 - 50 * m id 5.3 2 - 15 * g ran 72.0 35 - 80 * r bc 4.19 3.5 - 5.5 * h gb 14.1 11.5 - 16.5 * h ct 42.3 35 - 55 * m cv 100.8 75 - 100 * m ch 33.7 25 - 35 * m chc 33.4 31 - 38 * p latlet 277 100 - 400 * Gissel Garcia 01/14/2025 11:4 6:12 AM > 3.?Impaired fasting glucose?LAB: Glycohemoglobin A1c (in house) (Collection Date & Time - 01/14/2025)? 5.4%* Value Reference Range g lycohemoglobin 5.4% 5 - 6.5 % * Gissel Garcia 01/14/2025 11:4 7:19 AM > Sobeida Sena 01/26/2025 03:09:17 PM > See phone encounter 4.?Tobacco use disorder?Imaging: CT SCAN : CHEST, LUNG CANCER SCREENING LOW DOSE (Performed Date - 01/28/2025)* Juana Roper 01/17/2025 09:5 9:53 AM > sent through [email or web address] website; decision can take 3-5 daysJuana Roper 01/18/2025 08:07:05 AM > no auth required; CPT code 14507; [facility] 01/21/2025 02:27:13 PM > scheduled on 01/28/2025 at 11:00amVee Gillespie 02/28/2025 11:30:56 PM EDT >see TE * Procedure Codes: 8 3036 GLYCATED HEMOGLOBIN TEST, Modifiers: QW , 42485 CBC WITH AUTO DIFF, 3044F HG A1C LEVEL LT 7.0%, 3075F SYST BP GE 130 - 139MM HG, 3080F DIAST BP = 90 MM HG * Follow Up: v ia phone to report test results * Images: Billing Information: * Visit Code: 76390 Office Visit, Est Pt., Level 4. * Procedure Codes: 22896 GLYCATED HEMOGLOBIN TEST. Modifiers: QW 49233 CBC WITH AUTO DIFF. 3044F HG A1C LEVEL LT 7.0%. 3075F SYST BP GE 130 - 139MM HG. 3080F DIAST BP = 90 MM HG. * Electronic signature of DANNY Tafoya on 07/02/2025 at 09:41 AM EDT Sign off status: Pending * Provider: DANNY Weller Date: 0 01/14/2025 Generated for Ryani ng/Yajairag/eTransmitting on: 1 09/01/2024 09:41 AM EDT History and Physical Notes * HPI (History of Present Illness) Category Sub-Category Detail Notes Category Not es HPI Patient is here today for Pt is here for a 3 month check up with fasting labs Examination Category Sub-Category Detail Notes Category Not [...]
--- OUTSIDE RECORDS SUMMARY | 2025-04-15 06:00 | XMS_ITS ---
Author Organization [facility] Address [address] [place] [id number] Care Team Providers Care Yarn Worker Name Role Phone Trena Evans Primary Care Provider BernardoVee nguyễn Unavailable [phone] Allergies No Known Allergies Results Component Value Reference Range Notes CBC Fingerstick (in house) Reviewed date:04/15/2025 05:03:27 PM Interpretation: Performing Lab: Notes/Report: wbc 6.1 3.5 - 10 lym 25.6 15 - 50 mid 6.5 2 - 15 gran 67.9 35 - 80 rbc 4.02 3.5 - 5.5 hgb 13.7 11.5 - 16.5 hct 40.3 35 - 55 mcv 100.2 75 - 100 mch 34.0 25 - 35 mchc 33.9 31 - 38 plat 275 100 - 400 Glycohemoglobin A1c (in hous e) Reviewed date:04/15/2025 05:03:27 PM Interpretation:5.1% Performing Lab: Notes/Report: 5.1% glycohemoglobin 5.1% 5 - 6.5 % P-Comprehensive Metabolic Pa gustavo (CMP) Reviewed date:04/19/2025 11:25:56 AM Interpretation:Alk Phos 150 Performing Lab: Notes/Report: Test performed by [facility] , [address], [place] [address] Tc Lezama MD, Smudger CLIA: [id number] Sodium 138 135-145 mmol/L Potassium 4.1 3.5-5.3 mmol/L Chloride 104 97-108 mmol/L CO2 21 20-32 mmol/L Glucose 82 65-99 mg/dL BUN 16 8-23 mg/dL Creatinine 0.69 0.50-1.00 mg/dL Calcium 9.0 8.6-10.4 mg/dL eGFR by Creatinine 97 >59 mL/min/1.73m2 Protein 6.6 6.0-8.3 g/dL Albumin 4.3 3.5-5.3 g/dL Alkaline Phosphatase 150 35-121 IU/L ALT (SGPT) 17 <5-47 IU/L AST (SGOT) 22 <5-40 IU/L Bilirubin, Total 0.6 <0.2-1.2 mg/dL A/G Ratio 1.9 1.1-2.5 REASON FOR VISIT Check Up and Labs, Needs shingles vaccine Medications Medication SIG (Take, Route, [...] Once a day; Duration: 90 days Active Atorvastatin Calcium 40 MG TAKE 1 TABLET BY MOUTH EVERY DAY FOR 30 DAYS; Duration: 90 Active Social History Tobacco Use: Social History Observation Description Date Smoking Status WARNING: Information temporarily unavailable CURRENT TOBACCO USE: Question Answer Notes Are you a: 1/2 pack per day Vital Signs Blood pressure systolic 130 mm Hg 04/15/20 25 Blood pressure diastolic 90 mm Hg 025 Heart Rate 88 /min 04/15/2025 Height 58 in 04/15/2025 Weight 162.8 lbs 04/15/2025 BMI 34.02 kg/m2 04/15/2025 Encounters Encounter Location Date Provider Diagnosis [facility] [address] [facility] [place] [id number] 04/15/2025 Vee Gillespie Essential hypertensi on I10 ; Mixed hyperlipidemia E78.2 ; Depression with anxiety F41.8 ; Impaired fasting glucose R73.01 and Tobacco use disorder F17.200 Assessments Encounter Date Diagnosis (ICD Code) Assessment Notes Treatment Notes Treatment Clinical Notes Section Notes 04/15/2025 Essential hypertension (ICD-10 - I10) 04/15/2025 Mixed hyperlipidemia (ICD-10 - E78.2) 04/15/2025 Depression with anxiety (ICD-10 - F41.8) 04/15/2025 Impaired fasting glucose (ICD-10 - R73.01) 04/15/2025 Tobacco use disorder (ICD-10 - F17.200) Plan Of Treatment Next Appt Details Follow Up: via phone to repo rt test results, Reason: Progress Notes * REE EUSEBIODOB: 2 (64 yo F)Acc No.[id number]:04/15/2025 Progress Notes Patient: EUSEBIO PATTERSON Provider: DANNY Weller :1960 A ge:64 Y S ex:Female Date:04/15/2025 Address:[address] [place] [address] [id number] Pcp:Trena Evans Subjective: * Chief Complaints: * 1 . Check Up and Labs. 2. Needs shingles vaccine. * HPI: H PI: 64 year old female presents with c/o Patient is here today for?Pt is here today for a check up with labs. Pt sts she is doing well and has no concerns at this time. * ROS: D ERMATOLOGY: [...] Status: . Alcohol: yes, occasional wine. 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 Past smoking status: yes, PPD: , years: [...] food Orally Twice a day , Taking Atorvastatin Calcium 40 MG Tablet TAKE 1 TABLET BY MOUTH EVERY DAY FOR 30 DAYS , Taking Venlafaxine HCl ER 150 MG Capsule Extended Release 24 Hour 1 capsule with food Orally Once a day , Medication List reviewed and reconciled with the patient * Allergies: N .K.D.A. Objective: * Vitals: W t: 162.8, Temp: 98.4, BP: 130/90, HR: 88, Nurse: [facility], Ht: 58, Repeat BP: 130/88, BMI:34.02. * Examination: G eneral Examination: General Appearance: N AD. H EENT: u nremarkable.?Oral cavity: n o lesions, mucosa moist and WNL, no erythema. N sabrina: s upple, no lymphadenopathy. C hest: n ormal shape and expansion. H eart: R SR. L ungs: c lear to auscultation. A bdomen: b owel sounds present, soft and nontender, no organomegaly or masses, no guarding or rigidity. N eurologic Exam: I ntact, gait normal. S kin: n ormal, no rash. P eripheral pulses: n ormal (2+) bilaterally. E xtremities: n o leg edema. Assessment: * Assessment: 1. E ssential hypertension - I10 (Primary) 2 . M ixed hyperlipidemia - E78.2 3 . D epression with anxiety - F41.8 4 . I mpaired fasting glucose - R73.01 5 . T obacco use disorder - F17.200 Plan: * Treatment: Value Reference Range A /G Ratio 1.9 1.1-2.5 - * A lbumin 4.3 3.5-5.3 - g/dL * A lkaline Phosphatase 150 H 35-121 - IU/L * A LT (SGPT) 17 <5-47 - IU/L * A ST (SGOT) 22 <5-40 - IU/L * B ilirubin, Total 0.6 <0.2-1.2 - mg/dL * B UN 16 8-23 - mg/dL * C alcium 9.0 8.6-10.4 - mg/dL * C hloride 104 97-108 - mmol/L * C O2 21 20-32 - mmol/L * C reatinine 0.69 0.50-1.00 - mg/dL * G lucose 82 65-99 - mg/dL * P otassium 4.1 3.5-5.3 - mmol/L * S odium 138 135-145 - mmol/L * P rotein 6.6 6.0-8.3 - g/dL * e GFR by Creatinine 97 >59 - mL/min/1.73m2 * Sobeida Sena 04/19/2025 11: 25:48 AM EDT > See phone encounter ?LAB: CBC Fingerstick (in house) (Collection Date & Time - 04/15/2025)* Value Reference Range w bc 6.1 3.5 - 10 * l ym 25.6 15 - 50 * m id 6.5 2 - 15 * g ran 67.9 35 - 80 * r bc 4.02 3.5 - 5.5 * h gb 13.7 11.5 - 16.5 * h ct 40.3 35 - 55 * m cv 100.2 75 - 100 * m ch 34.0 25 - 35 * m chc 33.9 31 - 38 * p lat 275 100 - 400 * Gissel Garcia 04/15/2025 09:1 2:54 AM EDT > ?LAB: Glycohemoglobin A1c (in house) (Collection Date & Time - 04/15/2025)? 5.1%* Value Reference Range g lycohemoglobin 5.1% 5 - 6.5 % * Gissel Garcia 04/15/2025 09:1 4:19 AM EDT > * Procedure Codes: 8 5025 CBC WITH AUTO DIFF, 31826 GLYCATED HEMOGLOBIN TEST, Modifiers: QW , 3044F HG A1C LEVEL LT 7.0%, 3075F SYST BP GE 130 - 139MM HG, 3079F DIAST BP 80-89 MM HG * Follow Up: v ia phone to report test results * Images: Billing Information: * Visit Code: 46593 Office Visit, Est Pt., Level 4. * Procedure Codes: 93494 CBC WITH AUTO DIFF. 94364 GLYCATED HEMOGLOBIN TEST. Modifiers: QW 3044F HG A1C LEVEL LT 7.0%. 3075F SYST BP GE 130 - 139MM HG. 3079F DIAST BP 80-89 MM HG. * Electronic signature of DANNY Tafoya on 07/02/2025 at 09:42 AM EDT Sign off status: Pending * Provider: DANNY Weller Date: 0 04/15/2025 Generated for Fede prakash/Paige/eTransmitting on: 1 09/01/2024 09:42 AM EDT History and Physical Notes * HPI (History of Present Illness) Category Sub-Category Detail Notes Category Not es HPI Patient is here today for Pt is here today for a check up with labs. Pt sts she is doing well and has no concerns at this time Examination Category Sub-Category Detail [...]
--- OUTSIDE RECORDS SUMMARY | 2025-05-10 13:45 | XMS_ITS | Encounter Summary ---
Author Organization [facility] Address [address] [place] [address] Care Team Providers Care Oenologist Name Role Phone Vee Gillespie Primary Care Provider [phone] Reason for Visit * Reason Comments Blood Pressure Check Pt came in today to get BP checked. Also she made an appt with vascular on 05-13-25. Encounter Details Date Type Department Care Team (Late Contact Info) Description 05/10/2025 1:45 PM EDT Clinical Support [facility] [address] [place] [address] Social History Tobacco Use Types Packs/Day Years Used Date Smoking Tobacco: Every Day Cigarettes 0.5 30.8 Started: 1994 Passive Smoke Exposure: Current Smokeless Tobacco: Never Alcohol Use Standard Drinks/Week Comments Yes 4 (1 standard drink = 0.6 oz pur e alcohol) Comments Unknown Sex and Gender Information Value Date Recorded Sex Assigned at Female 06/15/2025 9:11 AM EDT Legal Sex Female 9:43 AM EDT Gender Identity Not on file Sexual Orientation Not on file documented as of this encounter Last Filed Vital Signs Vital Sign Reading Time Taken Comments Blood Pressure 148/90 05/10/2025 1:55 PM EDT Pulse - - Temperature - - Respiratory Rate - - Oxygen Saturation - - Inhaled Oxygen Concentration - - Weight - - Height - - Body Mass Index - - documented in this encounter Plan of Treatment Upcoming Encounters Date Type Department Care Team (Late Contact Info) Description 07/26/2025 2:15 PM EST Appointment [facility] [place] [address] [place] [address] 07/26/2025 3:30 PM EST Appointment [facility] [place] [address] [facility] [address] [place] [address] 08/16/2025 10:00 AM EST Office Visit [facility] [address] [facility] [address] [place] [address] Viral Love, SHAHANA [address] [facility] [address] [place] [id number] documented as of this encounter Visit Diagnoses Not on filedocumented in this encounter Care Teams Oenologist Relationship Specialty Start Date End Date Vee Gillespie PA [address] [facility] [address] [place] [address] PCP - General Physician Clinical Academic Allergist 03/09/24 documented as of this encounter
--- OUTSIDE RECORDS SUMMARY | 2025-05-12 04:45 | XMS_ITS ---
[facility] Address [address] [facility] [address] [place] [id number] Care Team Providers Care Forepart Rasper Name Role Phone Trena Evans Primary Care Provider BernardoVee nguyễn Unavailable [phone] Results Component Value Reference Range Notes P-Comprehensive Metabolic Pa gustavo (CMP) Reviewed date:05/20/2025 10:13:12 AM Interpretation:Alk Phos 131 Performing Lab: Notes/Report: Test performed by [facility] [address] , [address], [place] [address] Tc Lezama MD, Machine Bookkeeper CLIA: [id number] Sodium 144 135-145 mmol/L Potassium 4.3 3.5-5.3 mmol/L Chloride 107 97-108 mmol/L CO2 23 20-32 mmol/L Glucose 85 65-99 mg/dL BUN 16 8-23 mg/dL Creatinine 0.64 0.50-1.00 mg/dL Calcium 8.8 8.6-10.4 mg/dL eGFR by Creatinine 99 >59 mL/min/1.73m2 Protein 6.7 6.0-8.3 g/dL Albumin 4.4 3.5-5.3 g/dL Alkaline Phosphatase 131 35-121 IU/L ALT (SGPT) 19 <5-47 IU/L AST (SGOT) 21 <5-40 IU/L Bilirubin, Total 0.6 <0.2-1.2 mg/dL A/G Ratio 1.9 1.1-2.5 REASON FOR VISIT blood work Medications Medication SIG (Take, Route, Frequency, Duration) Notes Start Date End Date Status Venlafaxine HCl ER 150 MG 1 capsule with food Orally Once a day; Duration: 90 days Active Atorvastatin Calcium 40 MG TAKE 1 TABLET BY MOUTH EVERY DAY FOR 30 DAYS; Duration: 90 Active Metoprolol Tartrate 50 MG 1 tablet with food Orally Twice a day Active Lisinopril 40 MG 1 tablet Orally Once a day; Duration: 90 days Active Isosorbide Mononitrate ER 60 MG 1 tablet in the morning Orally Once a day; Duration: 30 day(s) Active CPAP machine and supplies - as directed as directed Active amLODIPine Besylate 2.5 MG 1 tablet Oral ly Once a day; Duration: 30 day(s) Active Encounters Encounter Location Date Provider Diagnosis [facility] [address] [facility] [address] [place], [place] [id number] 05/12/2025 Vee Gillespie Essential hypertensi on I10 Assessments Encounter Date Diagnosis (ICD Code) Assessment Notes Treatment Notes Treatment Clinical Notes Section Notes 05/12/2025 Essential hypertension (ICD-10 - I10) Plan Of Treatment No Information Progress Notes * EUSEBIO KEENANDOB: 2 (64 yo F)Acc No.[id number]:05/12/2025 Patient: Joaquin JORGECARMEN VILLALOBOSECCA Provider: DANNY Weller :1960 A ge:64 Y S ex:Female Date:05/12/2025 Address:[address] [place], [place] [address], [id number] Pcp:Trena Evans Subjective: * Chief Complaints: * 1 . Blood work. * Medical History: * Medications: T aking amLODIPine Besylate 2.5 [...] 1. E ssential hypertension - I10 (Primary) Plan: * Treatment: Value Reference Range A /G Ratio 1.9 1.1-2.5 - * A lbumin 4.4 3.5-5.3 - g/dL * A lkaline Phosphatase 131 H 35-121 - IU/L * A LT (SGPT) 19 <5-47 - IU/L * A ST (SGOT) 21 <5-40 - IU/L * B ilirubin, Total 0.6 <0.2-1.2 - mg/dL * B UN 16 8-23 - mg/dL * C alcium 8.8 8.6-10.4 - mg/dL * C hloride 107 97-108 - mmol/L * C O2 23 20-32 - mmol/L * C reatinine 0.64 0.50-1.00 - mg/dL * G lucose 85 65-99 - mg/dL * P otassium 4.3 3.5-5.3 - mmol/L * S odium 144 135-145 - mmol/L * P rotein 6.7 6.0-8.3 - g/dL * e GFR by Creatinine 99 >59 - mL/min/1.73m2 * Sobeida Sena 05/20/2025 09: 57:34 AM EDT > See phone encounter * Images: Billing Information: * Visit Code: * Procedure Codes: * Electronic signature of DANNY Tafoya on 07/02/2025 at 09:43 AM EDT Sign off status: Pending * Provider: DANNY Weller Date: 0 05/12/2025 Generated for Fede prakash/Paige/eTransmitting on: 1 09/01/2024 09:43 AM EDT
--- OUTSIDE RECORDS SUMMARY | 2025-06-15 14:00 | XMS_ITS | Encounter Summary ---
Author Organization [facility] Address [address] [place] [address] Care Team Providers Care Extrusion Engineer Name Role Phone Vee Gillespie Primary Care Provider [phone] Reason for Visit * Reason Comments Consult New pt per Vee DELGADO for ascending aortic aneurysm 4.9. Pt states that she has a been a smoker for over [address] chest. Lung cancer screening found this aneurysm. PT denies and SOA or fatigue, using a C-PAP at night. * Consultation (Urgent) - Closed Specialty Diagnoses / Procedures Referred By Contact Referred To Contact Cardiothoracic Surgery Diagnoses Aneurysm of ascending aorta without rupture Anastacio García, DO [address] [place] [address] Phone: tel:[phone] fax:[phone] Genaro Uribe MD [address] [place] [address] Phone: tel: fax: Referral ID Status Reason Start Date Expiration Date Visits Re quested Visits Authorized [id number] Closed 05/13/2025 08/12/2026 1 1 Encounter Details Date Type Department Care Team (Late st Contact Info) Description 06/15/2025 2:00 PM EDT Office Visit [facility] CARDIOTHORACIC SURGERY [address] [place] [address] Viral Love APRN [address] [facility] [address] [place] [id number] Aneurysm of ascending aorta without rupture (Primary Dx) Social History Tobacco Use Types Packs/Day Years Used Date Smoking Tobacco: Every Day Cigarettes 0.5 30.8 Started: 1994 Passive Smoke Exposure: Current Smokeless Tobacco: Never Tobacco Cessation:Ready to Q uit: Not Asked; Counseling Given: Not Answered Comments:Pt was smoking 2 ppd and has since cut down to 1 ppd or less. Alcohol Use Standard Drinks/Week Comments Yes 4 [...] Sign Reading Time Taken Comments Blood Pressure 168/88 06/15/2025 2:01 PM EDT rig ht arm Pulse 78 06/15/2025 1:58 PM EDT Temperature 36.9 C (98.5 F) 06/15/2025 1:58 PM EDT Respiratory Rate - - Oxygen Saturation 99% 06/15/2025 1:58 PM EDT Inhaled Oxygen Concentration - - Weight 75.7 kg (166 lb 12.8 oz) 06/15/2025 1:58 PM EDT Height 157.5 cm (5' 2 ) 06/15/2025 1:58 PM EDT p er pt Body Mass Index 30.51 06/15/2025 1:58 PM EDT documented in this encounter Progress Notes * Viral Love, SHAHANA - 06/15/2025 2:00 PM EDT Images from the original note were not included. [facility] Cardiothoracic Surgery New Patient Office Note Date of Encounter: 06/15/2025 Name: Maylin Hooper : 1960 Referred By: Anastacio García DO PCP: Vee Gillespie PA Chief Complaint: Chief Complaint Patient presents with Consult New pt per Vee DELGADO for ascending aortic aneurysm 4.9. Pt states that she has a been a smoker for over [address] chest. Lung cancer screening found this aneurysm. PT denies and SOA or fatigue, using a C-PAP at night. Subjective History of Present Illness: Maylni Hooper is a 64 y.o. female referred to CT Surgery for an ascending aortic aneurysm. PMH: Ascending aortic aneurysm, hypertrophic obstructive cardiomyopathy, HTN, HLD, anxiety and depression, ADITI on CPAP, and current smoker. Patient completed low-dose CT screening due to longstanding smoking history and 4.9 x 4.7 cm ascending aortic aneurysm was incidentally noted. She has no family history of aneurysmal disease or personal history of connective tissue disorder. She reports labile blood pressure control. She denies any unusual chest, back, or scapular pain. She has a long smoking history of 30+ years. Review of Systems: Review of Systems Constitutional: Positive for night sweats (hormones). Negative for chills, decreased appetite, fever, malaise/fatigue, weight gain and weight loss. HENT: Positive for congestion (allergies sometimes causes sneezing). Negative for hearing loss. Cardiovascular: Negative for chest pain, claudication, cyanosis, dyspnea on exertion, irregular heartbeat, leg swelling, near-syncope, orthopnea, palpitations, paroxysmal nocturnal dyspnea and syncope. Endocrine: Negative for polydipsia, polyphagia and polyuria. Hematologic/Lymphatic: Positive for bleeding problem. Negative for adenopathy. Bruises/bleeds easily. Musculoskeletal: Positive for joint pain (fingers and neck). Negative for arthritis, falls, gout, joint swelling, muscle weakness, myalgias and neck pain. Gastrointestinal: Negative for abdominal pain, anorexia, dysphagia, heartburn, nausea and vomiting. Genitourinary: Negative for dysuria and hematuria. Neurological: Positive for light-headedness (sometimes). Negative for dizziness, focal weakness, headaches, loss of balance, numbness, seizures, vertigo and weakness. Psychiatric/Behavioral: Negative for altered mental status, depression, substance abuse and suicidal ideas. The patient is nervous/anxious (dx in the office). Allergic/Immunologic: Negative for HIV exposure and persistent infections. I have reviewed the following portions of the patient's history: problem list, current medications,allergies, past surgical history, past medical history, past social history, past family history, and ROS and confirm it's accurate. Allergies: Allergies[1] Medications: Current Medications[2] History: Past Medical History: Diagnosis Date Hypertension Past Surgical History: Procedure Laterality Date SECTION 1991 1994 TONSILLECTOMY 1968 Social History[3] Family History Problem Relation Age of Onset Hyperlipidemia Mother Hypertension Mother Alzheimer's disease Mother Hyperlipidemia Father Hypertension Father Hypertension Sister Hypertension Brother Objective Physical Exam: Vitals: 06/15/25 1358 06/15/25 1401 BP: 168/92 Comment: left arm 168/88 Comment: right arm Pulse: 78 Temp: 98.5 ??F (36.9 ??C) SpO2: 99% Weight: 75.7 kg (166 lb 12.8 oz) Height: 157.5 cm (62 ) Comment: per pt Body mass index is 30.51 kg/m??. Physical Exam Vitals and nursing note reviewed. Constitutional: General: She is not in acute distress. HENT: Head: Normocephalic and atraumatic. Neck: Vascular: No carotid bruit or JVD. Cardiovascular: Rate and Rhythm: Normal rate and regular rhythm. Pulses: Radial pulses are 2+ on the right side and 2+ on the left side. Dorsalis pedis pulses are 2+ on the right side and 2+ on the left side. Posterior tibial pulses are 2+ on the right side and 2+ on the left side. Heart sounds: Normal heart sounds. No murmur heard. Pulmonary: Effort: Pulmonary effort is normal. Breath sounds: Normal breath sounds. Abdominal: General: There is no abdominal bruit. Palpations: There is no pulsatile mass. Musculoskeletal: Right lower leg: No edema. Left lower leg: No edema. Skin: General: Skin is warm. Neurological: Mental Status: She is alert. Gait: Gait is intact. Psychiatric: Attention and Perception: Attention normal. Behavior: Behavior is cooperative. Imaging/Labs: Adult Transthoracic Echo Complete W/ Cont if Necessary Per Protocol (03/23/2025 14:10) Interpretation Summary Left ventricular systolic function is normal. Calculated left ventricular EF = 63.5% Left ventricular ejection fraction appears to be 61 - 65%. Left ventricular diastolic function is consistent with (grade Ia w/high LAP) impaired relaxation. Mild mitral valve stenosis is present. Moderate dilation of the ascending aorta is present. Aortic Valve The aortic valve is abnormal in structure. The aortic valve exhibits sclerosis. The aortic valve appears trileaflet. No significant aortic valve regurgitation is present. No hemodynamically significant aortic valve stenosis is present. CT Outside Chest (01/28/2025 00:00) Personally reviewed and measured 4.7 cm IMAGING SCANNED (01/28/2025) Assessment / Plan Assessment / Plan: 1. Aneurysm of ascending aorta without rupture Initial referral to Dr. Uribe [facility]: Ascending aortic aneurysm, hypertrophic obstructive cardiomyopathy, HTN, HLD, anxiety and depression, ADITI on CPAP, and current smoker LDCT incidental finding of 4.9 x 4.7 cm ascending aortic aneurysm. Persoanlly reviewed and measured4.7 cm No prior imaging available for comparison Negative family history or personal history of connective tissue disorder Labile BP control, discussed goal <130/80. Work with PCP and cardiology for better control of BP Denies unusual chest, back, or scapular pain Long smoking history 30+ years, discussed importance of avoidance of tobacco products with aneurysmal disease Echocardiogram 03/2025 with trileaflet aortic valve without stenosis No US AAA screening available, will order at next follow up Return in 2 months with CTA chest +3D recon to document stability of aneurysm as well as [place] AAA screening Patient Education:Continue to avoid tobacco use. Continue to maintain strict BP control with goal <130/80 mmHg. Follow Up: Return in about 2 months (around 08/15/2025) for CTA chest +3D recon, [place] AAA. Or sooner for any further concerns or worsening sign and symptoms. If unable to reach us in the office please dial 911 or go to the nearest emergency department. Viral Love APRN [facility] Cardiothoracic Surgery Time Spent: I spent 47 minutes caring for Maylin on this date of service. This time includes time spent by me in the following activities: preparing for the visit, reviewing tests, obtaining and/or reviewing a separately obtained history, performing a medically appropriate examination and/or evaluation, counseling and educating the patient/family/caregiver, ordering medications, tests, or procedures, referring and communicating with other health manager medicare marketing, documenting information in the medical record, independently interpreting results and communicating that information with the pat ient/family/caregiver, and care coordination. [1] No Known Allergies [2] Current Outpatient Medications: amLODIPine (NORVASC) 5 MG tablet, Take 1 tablet by mouth Daily., Disp: 90 tablet, Rfl: 3 atorvastatin (LIPITOR) 40 MG tablet, Take 1 tablet by mouth Daily., Disp: 90 tablet, Rfl: 1 isosorbide mononitrate (IMDUR) 60 MG 24 hr tablet, Take 1 tablet by mouth Every Morning., Disp: 90 tablet, Rfl: 1 lisinopril (PRINIVIL,ZESTRIL) 40 MG tablet, Take 1 tablet by mouth Daily., Disp: 90 tablet, Rfl: 1 metoprolol tartrate (LOPRESSOR) 50 MG tablet, Take 1 tablet by mouth 2 (Two) Times a Day., Disp: 180 tablet, Rfl: 1 venlafaxine XR (EFFEXOR-XR) 150 MG 24 hr capsule, Take 1 capsule by mouth Daily., Disp: , Rfl: [3] Social History Socioeconomic History Marital status: Number of children: 2 Tobacco Use Smoking status: Every Day Current packs/day: 0.50 Average packs/day: 0.5 packs/day for 30.8 years (15.4 ttl pk-yrs) Types: Cigarettes Start date: 1994 Passive exposure: Current Smokeless tobacco: Never Tobacco comments: Pt was smoking 2 ppd and has since cut down to 1 ppd or less. Vaping Use Vaping status: Never Used Substance and Sexual Activity Alcohol use: Yes Alcohol/week: 4.0 standard drinks of alcohol Types: 4 Drinks containing 0.5 oz of alcohol per week Drug use: Not Currently Sexual activity: Defer documented in this encounter Plan of Treatment Upcoming Encounters Date Type Department Care Team (Late st Contact Info) Description 07/26/2025 2:15 PM EST Appointment [facility] ULTRASOUND [address] [address] 07/26/2025 3:30 PM EST Appointment [facility] [address] [facility] [address] [place] [address] 08/16/2025 10:00 AM EST Office Visit [facility] CARDIOTH[facility]ACIC SURGERY [address] [facility] [address] [place] [address] Viral Love APRN [address] [facility] [address] [place] [address] documented as of this encounter Visit Diagnoses Diagnosis Aneurysm of ascending aorta without rupture- Primary documented in this encounter Care Teams Extrusion Engineer Relationship Specialty Start Date End Date Vee Gillespie PA [address] [place] [address] [facility] [place] [address] PCP - General Physician Mental Health Orderly 03/09/24 documented as of this encounter
--- OUTSIDE RECORDS SUMMARY | 2025-06-29 11:23 | XMS_ITS ---
Author Organization [facility] Address [address] [facility] [address] [place] [id number] Care Team Providers Care Senior Clinical Research Scientist Name Role Phone Trena Evans Primary Care Provider [phone] Vee Gillespie [phone] REASON FOR VISIT Lab Order Encounters Encounter Location Date Provider Diagnosis [facility] [address] [place] [id number] 06/29/2025 Vee Gillespie Essential (primary) hypertension I10 and Hyperlipidemia, unspecified E78.5 Assessments Encounter Date Diagnosis (ICD Code) Assessment Notes Treatment Notes Treatment Clinical Notes Section Notes 06/29/2025 Essential (primary) hypertension (ICD-10 - I10) 06/29/2025 Hyperlipidemia, unspecified (ICD-10 - E78.5) Plan Of Treatment Pending Test Test Name Order Date Lipid Panel And Chol/HDL Ratio COMPREHENSIVE (CMP) 06/29/2025 Progress Notes * EUSEBIO KEENANDOB: 2 (64 yo F)Acc No.[id number]:06/29/2025 Patient: CELIO PATTERSONCA :1960 A ge:64 Y S ex:Female Address:[address] [facility] [address] Subjective: * Chief Complaints: * L ab Order * Medical History: * Surgical History: * Hospitalization/Major Diagno stic Procedure: * Medications: Objective: * Vitals: * Physical Examination: Assessment: * Assessment: 1. E ssential (primary) hypertension - I10 2 . H yperlipidemia, unspecified - E78.5 Plan: * Treatment: 2. H yperlipidemia, unspecified L AB: Lipid Panel And Chol/HDL Ratio * Procedure Codes: * true * Date: Generated for Fede prakash/Paige/[facility] on: 09/01/2024 09:42 AM EDT
--- OUTSIDE RECORDS SUMMARY | 2025-07-02 09:42 | XMS_ITS | Patient Health Record ---
[facility] Address [address] [place] [phone] Care Team Providers Care Audio Visual Director Name Role Phone Trena Evans Primary Care Provider [phone] Jose MiguelVee Unavailable [phone] Allergies No Known Allergies Results Component Value Reference Range Notes H-CMP Reviewed date:10/20/2024 12:42:01 PM Interpretation: Performing [...] AGRATIO 2.4 1.1-1.8 ALP 129 38-126 U/L CBC Fingerstick (in house) Reviewed date:04/15/2025 05:03:27 [...] 150 Performing Lab: Notes/Report: Test performed by [facility] , [address], [place] [address] Tc Lezama MD, Pan Greaser CLIA: [id number] Sodium 138 135-145 mmol/L Potassium 4.1 3.5-5.3 [...] 0.6 <0.2-1.2 mg/dL A/G Ratio 1.9 1.1-2.5 CT SCAN : CHEST, LUNG CANCER SCREENING LOW DOSE Reviewed date:02/28/2025 11:31:01 PM Interpretation: Performing Lab: Notes/Report: H-CBC Reviewed date:10/20/2024 12:42:01 PM Interpretation: Performing [...] 0.7 0.0-0.4 K/mm3 BA# 0.1 0-0.2 K/mm3 H-TSH Reviewed date:10/20/2024 12:42:01 PM Interpretation: Performing Lab: Notes/Report: TSH 1.27 0.465-4.68 uIU/mL P-TSH reflex to FT4 Reviewed date:01/26/2025 03:09:27 PM Interpretation: Performing Lab: Notes/Report: Test performed by [facility] [address] [place] [address] , [address], [place] [address] Tc Lezama MD, Pan Greaser CLIA: [id number] TSH reflex to FT4 0.71 0.43-5.25 mU/L P-Lipid Panel Reviewed date:01/26/2025 03:09:27 PM Interpretation:chol 273, trigs 163, chol/hdl 4.63, non-hdl 214, ldl 181 Performing Lab: Notes/Report: Test performed by [facility] [address] [place] [address] , [address], [place] [address] Tc Lezama MD, Pan Greaser CLIA: [id number] Cholesterol 273 <200 mg/dL Triglycerides 163 <150 [...] Results: 181 Units: mg/dL % Change: +88% P-Comprehensive Metabolic Pa gustavo (CMP) Reviewed date:01/26/2025 03:09:27 PM Interpretation:CO2 18, alk phos 125 Performing Lab: Notes/Report: Test performed by [employer], [employer] [facility] , [address], [place] [address] Tc Lezama MD, Pan Greaser CLIA: [id number] Sodium 141 135-145 mmol/L Potassium 4.2 3.5-5.3 [...] 0.4 <0.2-1.2 mg/dL A/G Ratio 2.0 1.1-2.5 Glycohemoglobin A1c (in hous e) Reviewed date:01/26/2025 03:09:27 PM Interpretation:5.4% Performing Lab: Notes/Report: 5.4% glycohemoglobin 5.4% 5 - 6.5 % CBC Venipuncture (in house) Reviewed date:01/16/2025 11:23:03 [...] - 38 platlet 277 100 - 400 H-Lipid Panel Reviewed date:10/20/2024 12:42:01 PM Interpretation: Performing Lab: Notes/Report: Patient Fasting? Y TRIG 98 30-150 mg/dl CHOL 204 140-200 mg/dl DLDL 114.55 100-129 mg/dL VLDL 20 0-40 mg/dL HDL 70 40-60 mg/dl CHLHDL 2.9 1-3.5 P-Comprehensive Metabolic Pa gustavo (CMP) Reviewed date:05/20/2025 10:13:12 AM Interpretation:Alk Phos 131 Performing Lab: Notes/Report: CLIA: [id number] Tc Lezama MD, Pan Greaser [facility] , [address], [place] [address] Test performed by [employer], [facility] Sodium 144 135-145 mmol/L Potassium 4.3 3.5-5.3 [...] 0.6 <0.2-1.2 mg/dL A/G Ratio 1.9 1.1-2.5 Mammogram Reviewed date:12/02/2024 03:43:26 PM Interpretation:stable, probably benign, continued f/u Performing Lab: Notes/Report: stable, probably benign, continued f/u Reason For Referral No Information Medications Medication SIG (Take, Route, Frequency, Duration) [...] Once a day; Duration: 30 day(s) Active Immunizations Vaccine Route Administration Date Status Comme nts Tetanus Tdap-Adacel (over 7yrs) IM Intramuscular 02/11/2024 Administered ppd SC Subcutaneous 07/12/2014 Administered Social History Tobacco Use: Social History Observation Description Date Smoking Status WARNING: Information temporarily unavailable CURRENT TOBACCO USE: Question Answer Notes Are you a: 1/2 pack per day Problems Problem Type SNOMED Code ICD Code Onset Dates Problem Status W/U Status Risk Notes Problem Hypertension (02524269) Hypertension (401.9) Active confirmed Problem Hyperlipidemia (20740646) Hyperlipidemia (272.4) Active confirmed Problem Vitamin D deficiency (51753177) Vitamin D deficiency NOS (268.9) Active confirmed Problem Mixed anxiety and depressive disorder (416863951) Depression with anxiety (300.4) Active confirmed Problem Essential hypertension (07179340) Essential (primary) hypertension (I10) Active confirmed Problem Essential hypertension (07729949) Essential hypertension (I10) Active confirmed Problem Abnormal mammogram (264060413) Abnormal mammogram (R92.8) Active confirmed Problem Mixed anxiety and depressive disorder (468897343) Depression with anxiety (F41.8) Active confirmed Problem Obese class I (350333148156646) BMI 33.0-33.9,adult (Z68.33) Active confirmed Problem Mixed hyperlipidemia (447039320) Mixed hyperlipidemia (E78.2) Active confirmed Problem Hyperlipidemia (36779770) Hyperlipidemia, unspecified (E78.5) Active confirmed Problem Tobacco use (793953095) Tobacco use disorder (F17.200) Active confirmed Problem Hypertrophic obstructive cardiomyopathy (17247522) Hypertrophic obstructive cardiomyopathy (I42.1) Active confirmed Vital Signs Heart Rate 88 /min 04/15/2025 Blood pressure diastolic 90 mm Hg 04/15/2025 Height 58 in 04/15/2025 Blood pressure systolic 130 mm Hg 04/15/2025 Weight 162.8 lbs 04/15/2025 BMI 34.02 kg/m2 04/15/2025 Encounters Encounter Location Date Provider Diagnosis [facility] [address] [facility] [address] [place] [id number] 10/15/2024 Vee Gillespie Mixed hyperlipidemia E78.2 ; Essential hypertension I10 and Depression with anxiety F41.8 [facility] [address] [facility] [address] [place] [id number] 01/14/2025 Vee Crowdy Mixed hyperlipidemia E78.2 ; Essential hypertension I10 ; Depression with anxiety F41.8 ; Impaired fasting glucose R73.01 ; Tobacco use disorder F17.200 and BMI 33.0-33.9,adult Z68.33 [facility] [address] [place] [id number] 04/15/2025 Vee Crowdy Essential hypertensi on I10 ; Mixed hyperlipidemia E78.2 ; Depression with anxiety F41.8 ; Impaired fasting glucose R73.01 and Tobacco use disorder F17.200 [facility] [address] [place], [place] [id number] 05/12/2025 Vee Crowdy Essential hypertensi on I10 [facility] [address] [place], [place] [id number] 07/15/2024 J Carlito Nathan Depression with anxi ety F41.8 [facility] [address] [place], [place] [id number] 07/20/2024 J Carlito Nathan Mixed hyperlipidemia E78.2 [facility] [address] [place], [place] [id number] 10/08/2024 J Carlito Nathan Mixed hyperlipidemia E78.2 [facility] [address] [place] [id number] 10/20/2024 Vee Crowdy [facility] [address] [place], [place] [id number] 11/26/2024 Vee Crowdy Depression with anxi ety F41.8 [facility] [address] [place] [id number] 12/02/2024 Vee Crowdy [facility] [address] [place] [id number] 12/14/2024 J Carlito Nathan Mixed hyperlipidemia E78.2 [facility] [address] [place] [id number] 01/03/2025 J Carlito Nathan Mixed hyperlipidemia E78.2 [facility] [address] [place] [id number] 01/26/2025 Vee Gillespie [facility] [address] [place] [id number] 02/28/2025 Vee Bernardody [facility] [address] [place] [id number] 04/19/2025 Vee Jose Miguel [facility] [address] [place] [id number] 05/03/2025 Trnea Evans [facility] [address] [place] [id number] 05/20/2025 Vee Gillespie [facility] [address] [place], [place] [id number] 05/30/2025 Trena Evans Depression with anxi ety F41.8 [facility] [address] [place], [place] [id number] 06/29/2025 Vee Bernardody Essential (primary) hypertension I10 and Hyperlipidemia, unspecified E78.5 Assessments Encounter Date Diagnosis (ICD Code) Assessment Notes Treatment Notes Treatment Clinical Notes Section Notes 10/15/2024 Mixed hyperlipidemia (ICD-10 - E78.2) 01/03/2025 Mixed hyperlipidemia (ICD-10 - E78.2) 06/29/2025 Essential (primary) hypertension (ICD-10 - I10) 05/30/2025 Depression with anxiety (ICD-10 - F41.8) 04/15/2025 Essential hypertension (ICD-10 - I10) 10/08/2024 Mixed hyperlipidemia (ICD-10 - E78.2) 10/15/2024 Essential hypertension (ICD-10 - I10) 01/14/2025 Essential hypertension (ICD-10 - I10) 01/14/2025 Mixed hyperlipidemia (ICD-10 - E78.2) 11/26/2024 Depression with anxiety (ICD-10 - F41.8) 07/20/2024 Mixed hyperlipidemia (ICD-10 - E78.2) 07/15/2024 Depression with anxiety (ICD-10 - F41.8) 05/12/2025 Essential hypertension (ICD-10 - I10) 12/14/2024 Mixed hyperlipidemia (ICD-10 - E78.2) 01/14/2025 Depression with anxiety (ICD-10 - F41.8) 10/15/2024 Depression with anxiety (ICD-10 - F41.8) Patient would like to increase her venlafaxine dose. Will take 2 and if this works, will send in rx for increased dose. 04/15/2025 Mixed hyperlipidemia (ICD-10 - E78.2) 06/29/2025 Hyperlipidemia, unspecified (ICD-10 - E78.5) 04/15/2025 Depression with anxiety (ICD-10 - F41.8) 01/14/2025 Impaired fasting glucose (ICD-10 - R73.01) 04/15/2025 Impaired fasting glucose (ICD-10 - R73.01) 01/14/2025 Tobacco use disorder (ICD-10 - F17.200) 01/14/2025 BMI 33.0-33.9,adult (ICD-10 - Z68.33) 04/15/2025 Tobacco use disorder (ICD-10 - F17.200) Plan Of Treatment Pending Test Test Name Order Date Lipid Panel And Chol/HDL Ratio COMPREHENSIVE (CMP) 06/29/2025 Insurance Providers Payer Name Payer Address Payer Phone Subscriber Number Group Number Insured Name Patient Relationship to Insured Coverage Start Date Coverage End Date [employer] [address] [place] [address] [id number] EUSEBIO KEENAN Self - patient is the insured Medical (General) History Medical History History ICD Code hypertension hyperlipidemia Surgical History Surgery Date(Month/Year) tonsillectomy 1968 1991 1994
--- OUTSIDE RECORDS SUMMARY | 2025-07-02 09:42 | XMS_ITS | Clinical Summary ---
Author Organization [facility] Address [address] [place] [address] Care Team Providers Care Peoplesoft Analyst Name Role Phone Vee Gillespie Primary Care Provider [phone] Allergies No known active allergies Medications atorvastatin (LIPITOR) 40 MG tablet Take 1 tablet by mouth Daily. 90 tablet 1 5 Active isosorbide mononitrate (IMDUR) 60 MG 24 hr tablet Take 1 tablet by mouth Every Morning. 90 tablet 1 5 Active lisinopril (PRINIVIL,ZESTRIL ) 40 MG tablet Take 1 tablet by mouth Daily. 90 tablet 1 5 Active metoprolol tartrate (LOPRESSOR) 50 MG tabletIndications :Essential hypertension Take 1 tablet by mouth 2 (Two) Times a Day. 180 tablet 1 5 Active venlafaxine XR (EFFEXOR-XR) 150 MG 24 hr capsule Take 1 capsule by mouth Daily. Active amLODIPine (NORVASC) 5 MG tabletIndications :Essential hypertension Take 1 tablet by mouth Daily. 90 tablet 3 5 06/13/20 26 Active amLODIPine (NORVASC) 2.5 MG tabletIndications :Essential hypertension Take 2 tablets by mouth Daily. 5 06/13/20 25 Discontinu ed(*Therap y completed) Active Problems Problem Noted Date Diagnosed Date Abnormal mammogram 03/23/2025 Class 1 obesity 03/23/2025 Mixed anxiety and depressive disorder 03/23/2025 Mixed hyperlipidemia 03/23/2025 Smoker 03/23/2025 Vitamin D deficiency 03/23/2025 Calcified atheromatous plaque 03/23/2025 Aneurysm of ascending aorta without rupture 03/02 Obstructive sleep apnea 08/20/2024 Assessment & Plan (10/22/2024 3:09 PM EST): She is doing very well on PAP therapy with excellent control and compliance. Download reviewed and interpreted today. Compliance is 97%, when used >4 hours is 73%. Average use per night is 5 hours and 50 minutes. Her AHI is 2.4. Airflow is comfortable. She is feeling much better and has more energy throughout the day. Her blood pressure has also improved. - Change pressure settings to 6-16 cm - Do not drive if sleepy - Will check download at follow-up visit in March Assessment & Plan (08/20/2024 3:22 PM EST): She completed home sleep study on 08/13/2024 that revealed severe ADITI with a baseline AHI of 37. We discussed ADITI and CPAP therapy in detail and she is agreeable. - Start CPAP therapy - Follow-up in 8 weeks for an ADITI compliance visit Hypersomnia 08/06/2024 Assessment & Plan (08/06/2024 3:36 PM EST): Patient reports loud snoring and excessive daytime sleepiness and fatigue. - Home sleep study for further evaluation Cardiomyopathy, hypertrophic obstructive 024 Assessment & Plan (10/22/2024 3:10 PM EST): Echocardiogram in March 2024 revealed obstructive hypertrophic cardiomyopathy. Obstruction due to to left ventricular outflow. -We will continue to monitor closely with annual echocardiogram. -Continue current medical therapy -Echocardiogram at follow-up visit Assessment & Plan (08/20/2024 3:21 PM EST): Echocardiogram in March revealed obstructive hypertrophic cardiomyopathy. Obstruction due to to left ventricular outflow. -We will continue to monitor closely with annual echocardiogram. -Continue current medical therapy Assessment & Plan (08/06/2024 3:36 PM EST): Echocardiogram in March revealed obstructive hypertrophic cardiomyopathy. Obstruction due to to left ventricular outflow. -We will continue to monitor closely with annual echocardiogram. -Continue current medical therapy Assessment & Plan (06/22/2024 4:09 PM EDT): Echocardiogram in March revealed obstructive hypertrophic cardiomyopathy. Obstruction due to to left ventricular outflow. -We will continue to monitor closely with annual echocardiogram. -Continue current medical therapy Assessment & Plan (03/24/2024 8:43 AM EDT): Echocardiogram today revealed obstructive hypertrophic cardiomyopathy. Obstruction due to left ventricular outflow. -We will continue to monitor closely with annual echocardiogram. -Continue current medical therapy Mitral stenosis 03/24/2024 Assessment & Plan (08/06/2024 3:35 PM EST): Mild mitral stenosis noted on echo from March 2024. - Continue to monitor with annual echo Assessment & Plan (03/24/2024 8:44 AM EDT): Mild mitral stenosis noted on echo today. -Continue to monitor with annual echo Abnormal EKG 03/09/2024 Assessment & Plan (03/24/2024 8:39 AM EDT): She completed a nuclear stress test on 03/17/2024 that revealed a low risk treadmill stress test, no evidence of ischemia. Echocardiogram today showed an LVEF of 61- 65%, mild mitral valve stenosis and obstructive hypertrophic cardiomyopathy. Assessment & Plan (03/09/2024 3:13 PM EDT): EKG completed today in ER showed normal sinus rhythm with a rate 84 bpm, possible left atrial enlargement and left anterior fascicular block. She has a family history of CAD. Her brother recently had several stents placed at age 67. Her cardiac risk factors include hypertension, hyperlipidemia, tobacco abuse and family history of CAD. - Cardiac workup to rule out ischemia and valvular abnormalities Essential hypertension 03/09/2024 Assessment & Plan (10/22/2024 3:10 PM EST): Hypertension is stable and controlled Continue current treatment regimen. Ambulatory blood pressure monitoring. Blood pressure will be reassessed in 3 months. - Continue current medications Assessment & Plan (08/20/2024 3:21 PM EST): Hypertension is borderline Continue current treatment regimen. Weight loss. Regular aerobic exercise. Blood pressure will be reassessedin 4 weeks. BP is improving with the addition of amlodipine. She recently completed a sleep study that showed severe ADITI. CPAP therapy has been initiated. We should see better blood pressure control once she starts CPAP therapy. - Continue current medications - Monitor blood pressure closely - Reassess at follow-up visit in 8 weeks. We may need to increase amlodipine to 5 mg once daily Assessment & Plan (08/06/2024 3:37 PM EST): Hypertension is borderline Medication changes per orders. Dietary sodium restriction. Regular aerobic exercise. Ambulatory blood pressure monitoring. Blood pressure will be reassessedin 2 weeks. -Trial of amlodipine 2.5 mg once daily - Continue to monitor blood pressure closely at home - Follow-up in 2 weeks to reassess Assessment & Plan (06/22/2024 4:11 PM EDT): Hypertension is borderline Medication changes per orders. Dietary sodium restriction. Regular aerobic exercise. Ambulatory blood pressure monitoring. Blood pressure will be reassessedin 4 weeks. -Increase metoprolol tartrate to 50 mg twice daily. - Continue to monitor blood pressure closely at home - Follow-up in 6 weeks to reassess Assessment & Plan (03/24/2024 8:38 AM EDT): Hypertension is stable and controlled Continue current treatment regimen. Dietary sodium restriction. Weight loss. Regular aerobic exercise. Ambulatory blood pressure monitoring. Blood pressure will be reassessed in 3 months. -Continue isosorbide, lisinopril and metoprolol at current doses Assessment & Plan (03/09/2024 3:12 PM EDT): Hypertension is uncontrolled. Medication changes per orders. Dietary sodium restriction. Weight loss. Regular aerobic exercise. Stop smoking. Ambulatory blood pressure monitoring. Blood pressure will be reassessedin 4 weeks. Blood pressure has been consistently elevated for the last several weeks, lisinopril was restarted by PCP. ER visit this morning for significantly elevated BP of 189/100. Metoprolol tartrate 25 mg twice daily was prescribed by ER physician. She has only taken 1 dose of that. BP today 182/96. - Continue lisinopril 40 mg once daily - Metoprolol tartrate 25 mg twice daily - Monitor blood pressure daily at home and report if worsening - Follow-up in 1 month to reassess Shortness of breath 03/09/2024 Assessment & Plan (03/09/2024 3:13 PM EDT): Shortness of breath on exertion and abnormal EKG - Proceed with cardiac workup Encounters Date Type Department Care Team Description 06/15/2025 2:00 PM EDT Office Visit [facility]ERY [address] [place] [address] Viral Love APRN Aneurysm of ascending aorta without rupture (Primary Dx) 06/15/2025 Travel 06/13/2025 Telephone [facility] [address] [place] [phone] Nikki Zuniga APRN 06/10/2025 Telephone [facility] [address] [place] [address] Liana Wilson MD 05/10/2025 1:45 PM EDT Clinical Support [facility] [address] [place] [address] 05/10/2025 Travel 04/26/2025 2:15 PM EDT Office Visit [facility] [address] [place] [address] Nikki Zuniga APRN Aneurysm of ascending aorta without rupture; Essential hypertension; Smoker 04/26/2025 1:30 PM EDT Ancillary Procedure [facility] [address] [place] [address] Aneurysm of ascending aorta without rupture; Calcified atheromatous plaque; Obstructive sleep apnea; Essential hypertension; Smoker; Mixed hyperlipidemia 04/26/2025 Travel from Last 3 Months Immunizations Immunization Administration Dates Next Due PPD Test 07/12/2014 Tdap 02/11/2024 Family History Medical History Relation Name Comments Hypertension Brother Hyperlipidemia Father Hypertension Father Alzheimer's disease Mother Hyperlipidemia Mother Hypertension Mother Hypertension Sister Relation Name Status Comments Brother Alive Father Mother Sister Alive Social History Tobacco Use Types Packs/Day Years [...] on file Sexual Orientation Not on file Last Filed Vital Signs Vital Sign Reading Time Taken Comments Blood Pressure 168/88 06/15/2025 2:01 PM EDT rig ht arm Pulse 78 06/15/2025 1:58 PM EDT Temperature 36.9 C (98.5 F) 06/15/2025 1:58 PM EDT Respiratory Rate 20 04/26/2025 2:00 PM EDT Oxygen Saturation 99% 06/15/2025 1:58 PM EDT Inhaled Oxygen Concentration - - Weight 75.7 kg (166 lb 12.8 oz) 06/15/2025 1:58 PM EDT Height 157.5 cm (5' 2 ) 06/15/2025 1:58 PM EDT p er pt Body Mass Index 30.51 06/15/2025 1:58 PM EDT Plan of Treatment Upcoming Encounters Date Type Department Care Team (Late st Contact Info) Description 07/26/2025 2:15 PM EST Appointment [facility] [place] [address] [place] [address] 07/26/2025 3:30 PM EST Appointment [facility] [address] [place] [address] 08/16/2025 10:00 AM EST Office Visit [facility]ERY [address] [facility] [address] [place] [address] Viral Love, CHIEF DEPUTY [employer] CLERK [address] [facility] [address] [place] [address] Health Maintenance Due Date Last Done Comments Annual Gynecologic Pelvic and Breast Exam 1960 LIPID PANEL 1961 Pneumococcal Vaccine 50+ (1 of 2 - PCV) 1980 PAP SMEAR 1982 COLOGUARD 2006 COLON CANCER SCREENING 5 YEAR SIGMOIDOSCOPY 2006 COLONOSCOPY [address] S[address]ENING [address] COLONOGRAPHY 2006 FECAL OCCULT BLOOD TEST 2006 FIT Testing (1 year) 2006 ZOSTER VACCINE (1 of 2) 2011 ANNUAL PHYSICAL 03/09/2024 HEPATITIS C SCREENING 03/09/2024 INFLUENZA VACCINE 04/01/2025 MAMMOGRAM 11/08/2026 11/08/2024 TDAP/TD VACCINES (2 - Td or Tdap) 02/10/2034 024 Procedures Procedure Name Priority Date/Time Associated Diagnosis Comments ECG 12-LEAD Routine 04/26/2025 3:33 PM EDT Essential hypertension DUPLEX CAROTID BILATERAL CAR - PERFORMED PROCEDURE Routine 04/26/2025 2:00 PM EDT Aneurysm of ascending aorta without rupture Calcified atheromatous plaque Obstructive sleep apnea Essential hypertension Smoker Mixed hyperlipidemia SCANNED - PULMONARY RESULTS 04/26/2025 SCANNED - MAMMO 11/08/2024 from Last 3 Months or Most Recently Relevant to Health Maintenance Results * ECG 12-LEAD (04/26/2025 3:33 PM EDT) Narrative [facility] ECG - 04/26/2025 3:33 PM EDT Nikki Zuniga APRN 04/26/2025 3:34 PM ECG 12 Lead Date/Time: 04/26/2025 3:33 PM Performed by: Nikki Zuniga APRN Authorized by: Nikki Zuniga APRN Comparison: compared with previous ECG from 03/09/2024 Similar to previous ECG Rhythm: sinus rhythm Rate: normal BPM: 67 ST Segments: ST segments normal T Waves: T waves normal QRS axis: normal Other: no other findings Clinical impression: normal ECG and non-specific ECG Procedure Note Nikki Zuniga APRN - 04/26/2025 2:15 PM EDT Images from the original note were not included. Date: 04/26/2025 Name: Maylin Hooper : 1960 PCP: Vee Gillespie PA REF: No ref. provider found Sleep and/or Cardiology Consulting Provider Note ..Hypertension and Sleep Apnea History of Present Illness The patient is a 64-year-old female who presents for follow-up onhypertension, ADITI, carotid duplex, and ascending aorta aneurysm. She has been monitoring her blood pressure at home, which has consistentlyremained above 140 systolic. She recently refilled her prescription foramlodipine 2.5 mg She has not yet consulted with a vascular specialist but is ready for areferral. She continues to use her CPAP machine without any complications. Preliminary carotid artery duplex results reviewed; normal. SOCIAL HISTORY Occupations: Works at [employer] Tobacco: Smokes cigarettes Cardiac history 1. Hypertension 2. Obstructive hypertrophic cardiomyopathy 3. Mild mitral valve stenosis 4. Hyperlipidemia 5. Severe ADITI-AHI 37, supine AHI 47. 6. Thoracic Ascending Aortic Aneurysm 7. Calcified CAD seen on LDCT 12/2024 LDCT 01/28/2025 - Ordered by PCP. There is a 2.5 mm right upper lobenodule. 2 mm perifissural left upper lung nodule. 3.5 mm subpleural leftlower lung nodule. No dominant aggressive appearing nodules areidentified. Emphysema/fibrosis trace in the centrilobular, predominantlyin upper lobe. Calcified coronary artery disease is present. There is afusiform ascending aortic aneurysm measuring up to 4.9 x 4.7 cm.Impression-lung RADS category 2S benign based on imaging features ofindolent behavior. Recommend 12-month screening LDCT. Ascending aorticaneurysm. Recommend vascular consultation. Echocardiogram 03/23/2024-LVEF 61 to 65%. Obstructive hypertrophiccardiomyopathy. Grade 1A diastolic dysfunction. Mild mitral stenosis. Nuclear stress test 03/17/2024-low risk treadmill stress test. No evidenceof ischemia Home sleep study 08/13/2024-Severe ADITI with overall AHI of 37. Oxygensaturation was below 89% for 51 minutes with the oxygen desaturation to aminimum of 78%. Supine AHI is 47. Medications Discontinued During This Encounter Medication Reason venlafaxine XR (EFFEXOR-XR) 75 MG 24 hr capsule Dose adjustment amLODIPine (NORVASC) 2.5 MG tablet No Known Allergies Current Outpatient Medications: amLODIPine (NORVASC) 2.5 MG tablet, Take 2 tablets by mouth Daily.,Disp: , Rfl: atorvastatin (LIPITOR) 40 MG tablet, Take 1 tablet by mouth Daily.,Disp: 90 tablet, Rfl: 1 isosorbide mononitrate (IMDUR) 60 MG 24 hr tablet, Take 1 tablet bymouth Every Morning., Disp: 90 tablet, Rfl: 1 lisinopril (PRINIVIL,ZESTRIL) 40 MG tablet, Take 1 tablet by mouthDaily., Disp: 90 tablet, Rfl: 1 metoprolol tartrate (LOPRESSOR) 50 MG tablet, Take 1 tablet by mouth 2(Two) Times a Day., Disp: 180 tablet, Rfl: 1 venlafaxine XR (EFFEXOR-XR) 150 MG 24 hr capsule, Take 1 capsule bymouth Daily., Disp: , Rfl: Past Medical History: Diagnosis Date Hypertension Patient Active Problem List Diagnosis Abnormal EKG Essential hypertension Shortness of breath Cardiomyopathy, hypertrophic obstructive Mitral stenosis Hypersomnia Obstructive sleep apnea Abnormal mammogram Class 1 obesity Mixed anxiety and depressive disorder Mixed hyperlipidemia Smoker Vitamin D deficiency Calcified atheromatous plaque Aneurysm of ascending aorta without rupture Family History Problem Relation Age of Onset Hyperlipidemia Mother Hypertension Mother Alzheimer's disease Mother Hyperlipidemia Father Hypertension Father Hypertension Sister Hypertension Brother family history includes Alzheimer's disease in her mother; Hyperlipidemiain her father and mother; Hypertension in her brother, father, mother, andsister. Social History Socioeconomic History Marital status: Number of children: 2 Tobacco Use Smoking status: Every Day Current packs/day: 0.50 Average packs/day: 0.5 packs/day for 30.6 years (15.3 ttl pk-yrs) Types: Cigarettes Start date: 1994 Passive exposure: Current Smokeless tobacco: Never Vaping Use Vaping status: Never Used Substance and Sexual Activity Alcohol use: Yes Alcohol/week: 4.0 standard drinks of alcohol Types: 4 Drinks containing 0.5 oz of alcohol per week Drug use: Not Currently Sexual activity: Defer Vital Signs: BP 140/88 (BP Location: Right arm, Patient Position: Sitting, Cuff Size:Adult) Pulse 76 Resp 20 Ht 157.5 cm (62 ) Wt 74.4 kg (164 lb) SpO2 96% BMI 30.00 kg/m Estimated body mass index is 30 kg/m as calculated from the following: Height as of this encounter: 157.5 cm (62 ). Weight as of this encounter: 74.4 kg (164 lb). Physical Exam Vitals reviewed. Constitutional: General: She is not in acute distress. HENT: Head: Normocephalic. Eyes: General: No scleral icterus. Cardiovascular: Rate and Rhythm: Normal rate. Pulmonary: Effort: Pulmonary effort is normal. Musculoskeletal: General: Normal range of motion. Cervical back: Normal range of motion. Skin: General: Skin is warm and dry. Neurological: Mental Status: She is alert and oriented to person, place, and time. Psychiatric: Mood and Affect: Mood normal. Thought Content: Thought content normal. Physical Exam Blood Pressure: 140 Results Imaging - Carotid duplex: Normal ECG 12 Lead Date/Time: 04/26/2025 3:33 PM Performed by: Nikki Zuniga APRN Authorized by: Nikki Zuniga APRN Comparison: compared withprevious ECG from 03/09/2024 Similar to previous ECG Rhythm: sinus rhythm Rate: normal BPM: 67 ST Segments: ST segments normal T Waves: T waves normal QRS axis: normal Other: no other findings Clinical impression: normal ECG and non-specific ECG Assessment and Plan Diagnoses and all orders for this visit: 1. Aneurysm of ascending aorta without rupture - Ambulatory Referral to Vascular Surgery 2. Essential hypertension - amLODIPine (NORVASC) 2.5 MG tablet; Take 2 tablets by mouth Daily. - ECG 12 Lead 3. Smoker Assessment & Plan 1. Hypertension: - Increase amlodipine dosage to 5 mg daily by taking two 2.5 mg pills. - Monitor blood pressure and provide a log of readings in approximately 2weeks. - Schedule a nurse visit at convenience for blood pressure check. - Further adjustments to medication may be necessary if blood pressureremains elevated. - Aggressive management of blood pressure is crucial to preventcomplications related to the aortic aneurysm. - Discussed the importance of consistent monitoring and follow-up to avoidhigh blood pressure spikes. 2. Ascending aorta aneurysm: - Consult with a vascular specialist due to the aortic aneurysm. - Aggressive management of blood pressure and smoking cessation arecrucial - If no call from the vascular office within 2 weeks, inform the nurseduring the visit. - Discussed the importance of controlling blood pressure and smokingcessation to prevent surgical intervention. 3. Obstructive sleep apnea: - Continues to use CPAP without any issues. 4. Carotid duplex: - Prelmin Carotid duplex was normal. -Declines smoking cessation Follow-up: Nurse visit or drop off blood pressure log in 2 weeks. Recommendations: ER if symptoms increase and Report if any new/changingsymptoms immediately Follow Up Return for 2 week nurse visit. Patient or patient asset protection representative verbalized consent for the use ofAmbient Listening during the visit with Nikki Zuniga APRN forchart documentation. 04/26/2025 14:42 EDT Nikki Zuniga APRN 04/26/2025 Please note that this explicitly excludes time spent on other separatebillable services such as performing procedures or test interpretation,when applicable. This note was created using dictation software whichoccasionally transcribes nonsensical phrases. Please contact the providerif any clarification is needed. us Nikki Zuniga APRN ECG ORDERABLES [facility] al Result ECG * DUPLEX CAROTID BILATERAL CAR - PERFORMED PROCEDURE (04/26/2025 2:00 PM EDT) Right arm BP 161/97 mmHg Left arm BP 161/99 mmHg Right Mid CCA PSV 64.2 cm/sec right Mid CCA EDV 12.2 cm/sec Dist CCA PSV 47.7 cm/sec Dist CCA EDV 13.9 cm/sec Prox ICA PSV -39.7 cm/sec Prox ICA EDV -9.7 cm/sec Mid ICA PSV 71.4 cm/sec Mid ICA EDV 21.3 cm/sec Prox ECA PSV -57.8 cm/sec Vertebral A PSV -29.5 cm/sec Prox SCLA PSV 71.3 cm/sec left Mid CCA PSV 73.5 cm/sec left Mid CCA EDV 21.6 cm/sec Dist CCA PSV 71.2 cm/sec Dist CCA EDV 15.7 cm/sec Prox ICA PSV -41.0 cm/sec Prox ICA EDV -19.7 cm/sec Mid ICA PSV -62.9 cm/sec Mid ICA EDV -21.3 cm/sec Dist ICA PSV -62.6 cm/sec Dist ICA EDV -21.5 cm/sec Prox ECA PSV -83.1 cm/sec Vertebral A PSV 48.7 cm/sec Prox SCLA PSV -69.0 cm/sec Dist ICA PSV 62.0 cm/sec Dist ICA EDV 20.0 cm/sec ICA/CCA ratio 1.50 Diastolic ICA/CCA Ratio 1.53 ICA/CCA ratio 0.85 ICA/CCA diastolic ratio 1.00 Anatomical Region Laterality Modality Ultrasound Narrative 04/26/2025 3:41 PM EDT Right internal carotid artery demonstrates normal flow without evidence of hemodynamically significant stenosis. Antegrade right vertebral flow. Left internal carotid artery demonstrates normal flow without evidence of hemodynamically significant stenosis. Antegrade left vertebral flow. Study Impression Right ICA: Imaging indicates normal flow without evidence of hemodynamically significant stenosis and a tortuous arterial path. Right Subclavian: Imaging indicates patent flow. Left ICA: Imaging indicates normal flow without evidence of hemodynamically significant stenosis and a tortuous arterial path. Left Subclavian: Imaging indicates patent flow. Study Findings Right CCA Prox: Intima-medial thickening noted. Right CCA Mid: Intima-medial thickening noted. Right CCA Dist: Intima-medial thickening noted. Right ICA Prox: No plaque visualized. Right ICA Mid: No plaque visualized. Tortuous vessel. Right ICA Dist: No plaque visualized. Right ECA: No plaque visualized. Right Vertebral: Antegrade flow noted. Left CCA Prox: Intima-medial thickening noted. Left CCA Mid: Intima-medial thickening noted. Left CCA Dist: Smooth heterogeneous plaque present. Intima-medial thickening noted. Left ICA Prox: Irregular heterogeneous plaque present. Left ICA Mid: No plaque visualized. Left ICA Dist: No plaque visualized. Left ECA: Smooth homogeneous plaque present. Left Vertebral: Antegrade flow noted. Additional Study Details The study is technically adequate for diagnosis. us Nikki Zuniga CHIEF DEPUTY COURT CLERK CV VASCULAR ORDERAB LES Final Result * Pulmonary Results Scan (04/26/2025) us Mer Simmons CHIEF DEPUTY COURT CLERK PFT ORDERABLES Final Result * MAMMO Scan (11/08/2024) Anatomical Region Laterality Modality Other Elsa Douglas APRN CHART REVIEW TABS Fin al Result from Last 3 Months or Most Recently Relevant to Health Maintenance Insurance [facility] PPO Care Teams Peoplesoft Analyst Relationship Specialty Start Date End Date Vee Gillespie PA [address] [place] [address] [facility] [address] [place] [id number] PCP - General Physician Smooth Plater 03/09/24
--- OUTSIDE RECORDS SUMMARY | 2025-07-02 09:43 | XMS_ITS | Encounter Summary ---
Author Organization [facility] Address [address] [place] [address] Care Team Providers Care Metal Patternmaker Name Role Phone Vee Gillespie Primary Care Provider [phone] Encounter Details Date Type Department Care Team (Latest Contact Info) Description 05/10/2025 Travel Social History Tobacco Use Types Packs/Day Years [...] on file documented as of this encounter Plan of Treatment Upcoming Encounters Date Type Department Care Team (Late st Contact Info) Description 07/26/2025 2:15 PM EST Appointment [facility] ULTR[facility]OUND [place] [address] [facility] [address] [place] [address] 07/26/2025 3:30 PM EST Appointment [facility] [address] [facility] [address] [place] [address] 08/16/2025 10:00 AM EST Office Visit [facility] MEDICAL [facility] CARDIOTHORACIC SURGERY [address] [address] [place] [phone] Viral Love APRN [address] [facility] [address] [place] [id number] documented as of this encounter Visit Diagnoses Not on filedocumented in this encounter Care Teams Metal Patternmaker Relationship Specialty Start Date End Date Vee Gillespie PA [address] [place] [address] PCP - General Physician Auxiliary Operator 03/09/24 documented as of this encounter
--- OUTSIDE RECORDS SUMMARY | 2025-07-02 09:43 | XMS_ITS | Encounter Summary ---
Author Organization [facility] Address [address] [place] [address] Care Team Providers Care Car Inspection And Repair Manager Name Role Phone Vee Gillespie Primary Care Provider [phone] Encounter Details Date Type Department Care Team (Latest Contact Info) Description 06/15/2025 Travel Social History Tobacco Use Types Packs/Day Years Used Date Smoking Tobacco: Every Day Cigarettes 0.5 30.8 Started: 1994 Passive Smoke Exposure: Current Smokeless Tobacco: Never Comments:Pt was smoking 2 pp d and has since cut down to 1 [...] Info) Description 07/26/2025 2:15 PM EST Appointment [facility] ULTRASOUND [place] [address] [facility] [address] [place] [address] 07/26/2025 3:30 PM EST Appointment [facility] [address] [place] [address] [facility] [address] [place] [address] 08/16/2025 10:00 AM EST [facility] CARDIOTHORACIC SURGERY [address] [place] [address] Viral Love APRN [address] [facility] [address] [place] [address] documented as of this encounter Visit Diagnoses Not on filedocumented in this encounter Care Teams Car Inspection And Repair Manager Relationship Specialty Start Date End Date Vee Gillespie PA [address] [place] [address] [facility] [address] [place] [address] PCP - General Physician Creative Guru 03/09/24 documented as of this encounter
--- OUTSIDE RECORDS SUMMARY | 2025-07-02 09:44 | XMS_ITS | Encounter Summary ---
Author Organization [facility] Address [address] [place] [address] Care Team Providers Care Data Quality Consultant Name Role Phone Vee Gillespie Primary Care Provider [phone] Encounter Details Date Type Department Care Team (Late st Contact Info) Description 06/10/2025 Telephone [facility] CARDIOLOGY [address] [place] [address] Liana Wilson MD [address] [place] [address] Social History Tobacco Use Types Packs/Day Years [...] on file documented as of this encounter Miscellaneous Notes * Telephone Encounter - Ioana Arguello RN - 06/13/2025 12:42 PM EDT Duplicate message. Needs new script for Amlodipine 5mg one daily #90 sent to [facility] in [place]. Message already forwarded to providers. * Telephone Encounter - Sharon Powell MA - 06/13/2025 8:49 AM EDT Left message for pt to call back. * Telephone Encounter - Rosi Vergara RegSched Rep - 06/10/2025 3:06 PM EDT Patient called and left a voicemail asking to speak to someone about a medication. documented in this encounter Plan of Treatment Upcoming Encounters Date Type Department Care Team (Late st Contact Info) Description 07/26/2025 2:15 PM EST Appointment [facility] ULTR[facility]OUND [place] [address] [facility] [address] [place] [address] 07/26/2025 3:30 PM EST Appointment [facility] [address] [facility] [address] [place] [address] 08/16/2025 10:00 AM EST Office Visit [facility] MEDICAL [facility] CARDIOTHORACIC SURGERY [address] [facility] [address] [place] [address] Viral Love APRN [address] [facility] [address] [place] [address] documented as of this encounter Visit Diagnoses Not on filedocumented in this encounter Care Teams Data Quality Consultant Relationship Specialty Start Date End Date Vee Gillespie PA [address] [place] [address] [place] [address] PCP - General Physician Ticket Sorter 03/09/24 documented as of this encounter
--- OUTSIDE RECORDS SUMMARY | 2025-07-02 09:44 | XMS_ITS | Encounter Summary ---
Author Organization [facility] Address [address] [place] [address] Care Team Providers Care Oil Dispatcher Name Role Phone Vee Gillespie Primary Care Provider [phone] Encounter Details Date Type Department Care Team (Late st Contact Info) Description 06/13/[address] [facility] CARDIOLOGY [address] [place] [address] Nikki Zuniga APRN [address] [place] [address] Social History Tobacco Use Types [...] Encounter - Ioana Arguello RN - 06/13/2025 2:45 PM EDT Called pt to discuss Amlodipine 5mg has been called to [facility]. She needs to schedule a 1-2 month follow up. She was in [facility] and will call back to schedule. * Telephone Encounter - Ioana Arguello RN - 06/13/2025 12:40 PM EDT Pt last seen by Vianey Zuniga APRN on 04/26/25. Amlodipine 2.5mg was increased from one daily to two daily. Pt states her blood pressure is staying well controlled on this increased dose. Needs newprescription sent for Amlodipine 5mg one daily # 90 to [facility] in [place]. She currently does not have any follow up scheduled. Please advise. * Telephone Encounter - Ammy Miranda RegSched Rep - 06/13/2025 12:29 PM EDT Patient called and LVM for refill on amLODIPine. Patient stated that Vianey had upped her dosage to2 tablets per day. She is asking for call back to discuss a possible new prescription. documented in this encounter Plan of Treatment Upcoming Encounters Date Type Department Care Team (Late st Contact Info) Description 07/26/2025 2:15 PM EST Appointment [facility]TR[facility]OUND [place] [address] [facility] [address] [place] [address] 07/26/2025 3:30 PM EST Appointment [facility] [address] [place] [address] [facility] [address] [place] [address] 08/16/2025 10:00 AM EST Office Visit [facility] CARDIOTHORACIC SURGERY [address] [place] [address] Viral Love APRN [address] [place] [address] documented as of this encounter Visit Diagnoses Not on filedocumented in this encounter Care Teams Oil Dispatcher Relationship Specialty Start Date End Date Vee Gillespie PA [address] [place] [address] [facility] [address] [place] [address] PCP - General Physician Co Founder And Chairman 03/09/24 documented as of this encounter
[2025-07-02 10:40] LABS: Alanine Aminotransferase 22 U/L (12-78); Albumin Level 4.1 g/dl (3.5-5.0); Albumin/Globulin Ratio 1.1 (1.1-1.8); Alkaline Phosphatase 155 U/L (38-126); Anion Gap 11.4 mEq/L (5-15); Aspartate Amino Transferase 27 U/L (14-36); Bilirubin,Total 0.9 mg/dl (0.2-1.3); Blood Urea Nitrogen 20 mg/dl (7-17); Calcium 9.2 mg/dl (8.4-10.2); Carbon Dioxide 27 mmol/L (22.0-30.0); Chloride 105 mmol/L (98-107); Cholesterol 222 mg/dl (140-200); Creatinine,Serum 0.80 mg/dl (0.52-1.04); Estimated Glomerular Filt Rate 72 ml/min (>60); GFR (African American) 88 ML/MIN (>60); Globulin 3.6 g/dL (1.3-3.2); Glucose 110 mg/dl (74-100); HDL Cholesterol 63 mg/dl (40-60); Potassium 4.4 mmoL/L (3.5-5.1); Sodium 139 mmol/L (136-145); Total Protein,Serum 7.7 g/dl (6.3-8.2); Triglycerides 336 mg/dl (30-150)
== END 2025-07-02 23:59 | disposition home or self-care (01) ==
LOC: LAB 09:40
PROVIDERS: PCP Physician Assistant; Visit Provider Physician Assistant
DX: E78.5 Hyperlipidemia, unspecified (principal); I10 Essential (primary) hypertension
CPT/HCPCS: 36415; 80053; 80061